=== PATIENT | male | born 1955 | race Caucasian/White ===

== ENCOUNTER 2017-11-19 05:48 | Day surgery (SDC) | payer MEDICARE, SELFPAY ==
[2017-11-19] VITALS (14 sets, daily range): BP systolic 54–121; BP diastolic 46–88; PULSE 63–80; RESP 16–18; TEMP 36.2–36.3; O2SAT 91–98; BMI 17.6
--- NOTE | 2017-11-19 | COLBX_PTH ---
PATIENT: TIA JAIMES LOC: EN U#:[id number] AGE/SX: 62/M ROOM: RE11/19/[address]: Dr. Tia Tsai MD : 1955 BED: DIS: 11/19/2017 SPEC #: [id number] RECD: 11/19/17 09:35 STATUS: ADRIANNA MALIKA #: [id number] GER: 11/19/17 00:[address]: Tia Tsai DEPT: SURGICAL PATHOLOGY RECD BY: Romluo Sharma ENTERED: 11/19/17 11:04 ERNESTO TYPE: COLON BX EKATERINA DR: Monse Fernandez, INSTRUCTOR DECORATING-C Tissues: Transverse colon Procedures: Surgery Specimen Level IV HEADER OPERATION: Colonoscopy PRE-OP DIAGNOSIS: History colon cancer TISSUE SUBMITTED: Mid transverse polyp MICROSCOPIC DIAGNOSIS Transverse colon polyp, biopsy: Tubular adenoma. SJ:ernesto 11/20/17 MICROSCOPIC DESCRIPTION Slides are reviewed. GROSS DESCRIPTION Received in fixative is one container labeled with the patient's name and designated mid transverse polyp. The specimen consists of one polyp of pink and lewis tissue measuring 0.5 x 0.5 x 0.4. The specimen is totally submitted in one cassette. DEANNE:ernesto 11/18/17 TC: 1 CPT: 04481
--- NOTE | 2017-11-19 06:19 | HP.PCM_ITS ---
Problem List (1) History of colon cancer Status: Acute History of Present Illness Date of Admission: 11/19/17 The patient is a 62 year old M who on November 14, 2016 had a right colectomy for severe blood loss anemia secondary to colon cancer. He still has a indwelling port. 1- Stage IIIb (T3, and 1B, M0 ) adenocarcinoma of the right colon status post laparoscopic right hemicolectomy status post right hemicolectomy November 14, 2016 followed by adjuvant [id number] 12/2016-06/2017 (12 Cycles). He has no specific complaints. He currently follows with and he is being referred today for colonoscopy. He presents via our open access program. He has no specific complaints currently. He is a long-term cigarette smoker and he continues to smoke Past Medical History Past Medical History (Chronic Problems): Chronic Problems (Last Reviewed 10/22/17 @ 14:11 by Bri Agustin) GERD (gastroesophageal reflux disease) (Chronic) H/O ventricular tachycardia (Chronic) COPD (chronic obstructive pulmonary disease) (Chronic) Paroxysmal a-fib (Chronic) PAD (peripheral artery disease) (Chronic) Non-ischemic cardiomyopathy (Chronic) Regional lymph node metastasis present (Chronic) Iron (Fe) deficiency anemia (Chronic) Cancer of right colon (Chronic) BPH (benign prostatic hyperplasia) (Chronic) Medical History: Medical History (Last Reviewed 10/22/17 @ 14:11 by Bri Agustin) Afib (Acute) I48.91 COPD (chronic obstructive pulmonary disease) (Acute) J44.[address] (Acute) Z95.828 Abnormal colonoscopy R93.3 RIGHT KIDNEY PROCEDURE W/ TUBE PLACEMET Allergies No Known Allergies Allergy (Verified 11/14/17 08:40) Home Medications: Ambulatory Orders Medication Instructions Recorded Albuterol IH (ProAir) [Proair Hfa] 1 - 2 puff INHALATION Q4H PRN PRN 11/25/15 Apixaban [Eliquis] 5 mg PO BID 11/25/15 Atorvastatin Calcium [Lipitor] 40 mg PO QHS 11/25/15 Pantoprazole Sodium [Protonix] 40 mg PO DAILY 11/25/15 Sotalol HCl [Betapace AF (Beta 80 mg PO BID 11/25/15 Damion)] Budesonide/Formoterol 160/4.5 2 puff INHALATION BID 06/11/17 [Symbicort 160/4.5 Mcg Inhaler (SP)] Tiotropium [place] [Spiriva 18 MCG] 1 puff INHALATION DAILY 11/14/17 Surgical History: Surgical History (Last Reviewed 10/22/17 @ 14:11 by Bri Agustin) H/O colectomy Z98.890, Z90.49 Surgical History: - - Right renal surgery Smoking Status: Light Smoker (<10/day) - *Family History Paternal Family History: Family History (Last Reviewed 10/22/17 @ 14:11 by Bri Agustin) Father Stomach cancer Mother Ovarian cancer Sister Colon cancer History Items: No pertinent history Review of Systems Constitutional: Denies: Weight Change Eyes: Denies: Blurred vision HEENT: Denies: Difficulty Swallowing Cardiovascular: Denies: Chest Pain Respiratory: Reports: Cough Gastrointestinal: Denies: Abdominal Pain Musculoskeletal: Denies: Leg Pain Skin: Reports: Dryness Neurological: Denies: Balance problems Psychiatric: Denies: Anxiety VTE Information - Inpt Only VTE Present on Admission: No Patient Problems: Active and Suspected Problems (Last Reviewed 10/22/17 @ 14:11 by Bri Agustin) History of colon cancer (Acute) Blepharitis (Acute) Afib (Acute) COPD (chronic obstructive pulmonary disease) (Acute) Port catheter in place (Acute) - Physical Exam General: Alert, Oriented x3, Cooperative, No apparent distress HEENT: Atraumatic Oral: Moist Mucosa Neck: Supple, No JVD, Negative Carotid Bruits Lungs: Clear to auscultation Cardiovascular: Regular rate Abdomen: Bowel Sounds Present, Soft, Non Tender Extremities: Clubbing Skin: No rashes Musculoskeletal: No Tenderness to Palpation of Joints or Extremities Lymphatic: No Cervical, Supraclavicular, or Inguinal Adenopathy Neurological: Cranial nerves II-XII grossly intact Psych/Mental Status: Normal Affect Assessment/Plan All Active Problems (Last Reviewed 10/22/17 @ 14:11 by Bri Agustin) History of colon cancer (Acute) Obstructed, uropathy (Acute) Acute pyelonephritis (Acute) Blepharitis (Acute) Chemotherapy-induced thrombocytopenia (Resolved) Drug induced neutropenia (Resolved) Afib (Acute) COPD (chronic obstructive pulmonary disease) (Acute) Port catheter in place (Acute) Patient is one-year status post right colectomy for metastatic colon cancer. Recommend a colonoscopy with possible biopsy or polypectomy is indicated. His previous colonoscopy was approximately 1 year ago as well. He has had an opportunity to ask and have questions answered. We will proceed as noted. Rito Tsai M.D., F.A.C.S.
--- NOTE | 2017-11-19 07:18 | PCM.OPRPT ---
Problem List (1) History of colon cancer Status: Acute Report of Operation Date of Procedure: 11/19/17 Pre-Operative Diagnosis: Previous history of colon cancer with metastatic disease to lymph nodes one year ago Post-Operative Diagnosis: Patent ileocolonic anastomosis. Sessile 1.1 cm polyp of the mid transverse colon. Scattered pancolonic diverticulosis. internal hemorrhoids Surgery/Procedure Performed:: Colonoscopy with hot snare polypectomy Description of Surgical Findings:: Timeout and informed consent was obtained. 62-year-old gentleman was taken to the endoscopy suite. He was placed in the left lateral decubitus position. He received 100 g Demerol and 3 mg of Versed as intravenous sedation. Digital rectal exam demonstrated 2+ internal hemorrhoids. The prostate was 3+ smooth enlarged. Possible colonoscope was inserted and advanced through a tortuous sigmoid colon. Scope was then readily advanced to the transverse colon with some manipulation advanced to the ileocolonic anastomosis in the proximal transverse colon area. This was a stapled anastomosis that appeared to be widely patent. The scope was then carefully withdrawn and in the mid transverse colon there was a 1.1 cm diameter sessile polyp. Photograph was obtained. There lens setting was used to resect and retrieved. Because of the patient's medical comorbidities including anticoagulation for atrial fibrillation I placed a hemostatic clip. That seemed to be well positioned. The scope was further withdrawn throughout the colon. Scattered diverticulosis identified. No additional mass lesions. The scope was retroflexed within the rectum anorectal verge inspected hemorrhoidal changes noted. Excess fluid and air was aspirated. The procedure was completed with the patient tolerating it well. Impression Patent ileocolonic anastomosis Sessile polyp in the mid transverse colon successfully resected with hemostatic clip placed Pancolonic diverticulosis Internal hemorrhoids Smooth prostate enlargement The patient will be notified of pathology results as they become available. He has a indwelling port and he may arrange to have this removed in my office setting. Previous colonoscopy was approximately 1 year ago. Because of the personal history of metastatic colon cancer and ongoing finding of polyps recommend follow-up colonoscopy at 1 year. CC: Monse Orellana and Dr Deleon Medications were given at 0700. Scope was inserted 0703. The ileotransverse colon anastomosis was arrived at 0707.58. The procedure was completed at 0716. Rito Tsai M.D., F.A.C.S. Type of Anesthesia:: IV Sedation
== END 2017-11-19 08:51 | disposition home or self-care (01) ==
LOC: EN 05:48 → AC 05:49
PROVIDERS: Family Provider Nurse Practitioner; PCP Nurse Practitioner; Visit Provider Surgery
PROC: 0DJD8ZZ Inspection of Lower Intestinal Tract, Via Natural or Artificial Opening Endoscopic (ICD-10-PCS; CPT 45378; principal; 2017-11-19 06:55)
DX: Z12.11 Encounter for screening for malignant neoplasm of colon (principal); D12.3 Benign neoplasm of transverse colon; K57.30 Diverticulosis of large intestine without perforation or abscess without bleeding; K64.8 Other hemorrhoids; D50.9 Iron deficiency anemia, unspecified; N10 Acute pyelonephritis; I48.0 Paroxysmal atrial fibrillation; J44.9 Chronic obstructive pulmonary disease, unspecified; N40.1 Benign prostatic hyperplasia with lower urinary tract symptoms; N13.8 Other obstructive and reflux uropathy; I42.8 Other cardiomyopathies; I73.9 Peripheral vascular disease, unspecified; K21.9 Gastro-esophageal reflux disease without esophagitis; F17.210 Nicotine dependence, cigarettes, uncomplicated; Z79.01 Long term (current) use of anticoagulants; Z79.899 Other long term (current) drug therapy; Z85.038 Personal history of other malignant neoplasm of large intestine; Z90.49 Acquired absence of other specified parts of digestive tract
CPT/HCPCS: 45385; 88305; 99152; 99153; J7120; A4216

== ENCOUNTER → 2018-01-03 16:03 | Outpatient (CLI) | payer MEDICARE, SELFPAY ==
--- NOTE | 2018-01-03 16:10 | CT_ITS ---
STUDY: LOW DOSE CT LUNG CANCER SCREENING REASON FOR EXAM: Male, 62 years old. Smoker for 47 years. Tobacco use. History of colon cancer. RADIATION DOSAGE (If Supplied By Facility): CTDIvol = ( 2.01 ) mGy, DLP = ( 75.50 ) mGycm TECHNIQUE: No contrast was administered. Low dose technique was utilized (average mAS-38 and kVp 120). 1.25 mm axial source images with a slice interval of 1.25-mm were reconstructed in lung windows. Nodule measured using lung windows on PACS and/or independent workstation with automated measurement of minimum and maximum diameter. Nodule measurement reported as average diameter rounded to the nearest whole number. Growth is defined as an increase ins size of greater than 1.5 mm. COMPARISON: None. NODULES: Nodule: There are innumerable 1 to 10 mm subsolid/groundglass nodules/opacities demonstrated scattered in both lungs, worrisome of malignancy until proven otherwise. Moderately severe emphysema: Subpleural emphysematous blebs, diffuse parenchymal cystic lucencies and hyperinflation of the lungs. There is biapical significant pleural parenchymal thickening and fibrotic scarring. Endobronchial lesion: None. Aorta: Mild atherosclerotic calcification of the aortic arch. Coronary arteries: Unremarkable. Heart: Normal size. Pulmonary artery: Within normal limits. Mediastinal nodes: A few small reactive mediastinal lymph nodes. Other chest and abdominal findings: A right IJ Port-A-Cath is seen with the tip in mid SVC. Increased thoracic kyphosis. CT/Low Dose CT Lung Screening IMPRESSION: Innumerable groundglass opacity nodules/sub-solid nodules are seen in both lungs, suspicious of malignancy/adenocarcinoma in situ until proven otherwise. Consider follow-up with short-term CT exam in 3 months. PET/CT has limited value in the diagnostic workup of groundglass opacity nodules. Lung-RADS category 4A - Screening at 3 months with LDCT. Persisting ground glass opacity nodules larger than 5 mm should be followed for at least 4 years. IMPORTANT NOTES FOR USE: ACR Lung-RADS Version 1.0 Assessment Categories Release Date: September 21, 2013 Category: Coded 0-4 bases on nodule(s) with highest degree of suspicion. Negative screen is defined as categories 1 and 2; a positive screen is defined as categories 3 and 4. Category 3 and 4A nodules that are unchanged on interval CT should be coded as category 2, and individuals returned to screening in 12 months. Category 4X: Category 3 or 4 nodules with additional imaging findings that increase the suspicion of lung cancer, such as spiculation, GGN that doubles in size in 1 year, enlarged lymph notes, etc. Category Modifiers: S (significant finding unrelated to lung cancer) and C (prior history of treated lung cancer) may be added to the 0-4 Lung-RADS Electronically Signed: Brayden Morris MD at 7:53 EDT Tel , Service support ,
== END ==
PROVIDERS: Family Provider Student in an Organized Health Care Education/Training Program; PCP Student in an Organized Health Care Education/Training Program; Visit Provider Internal Medicine Hematology & Oncology
DX: C18.2 Malignant neoplasm of ascending colon (principal); C77.9 Secondary and unspecified malignant neoplasm of lymph node, unspecified; Z87.891 Personal history of nicotine dependence
CPT/HCPCS: G0297

== ENCOUNTER → 2018-01-24 13:11 | Outpatient (CLI) | payer MEDICARE, SELFPAY ==
--- NOTE | 2018-01-27 17:44 | LEAS ---
Arterial Study - Arterial Study Arterial Study: This is a 62-year-old male with a history of chronic obstructive pulmonary disease, atrial fibrillation, colon cancer, peripheral arterial occlusive disease, and smoking. He is brought to the noninvasive vascular laboratory at this time for the purpose of bilateral noninvasive lower extremity arterial assessment. Doppler signal assessment was used to evaluate the pulses at ankle level bilaterally. The posterior tibial and dorsalis pedis pulses were biphasic bilaterally. Segmental limb pressures were obtained bilaterally. The right low thigh pressure was measured at 95 mmHg. The right calf pressure was measured at 94 mmHg. The right ankle pressure, as determined by posterior tibial pulse, was measured at 81 mmHg. The right ankle pressure, as determined by dorsalis pedis pulse, was measured at 94 mmHg. The right digital pressure was measured at 57 mmHg. The left low thigh pressure was measured at 88 mmHg. The left calf pressure was measured at 110 mmHg. The left ankle pressure, as determined by posterior tibial pulse, was measured at 84 mmHg. The left ankle pressure, as determined by dorsalis pedis pulse, was measured at 86 mmHg. The left digital pressure was measured at 78 mmHg. Pulse-volume recordings were obtained bilaterally and segmentally. Waveform amplitudes appeared to be diminished at all levels bilaterally. Resting ankle-brachial indices were calculated bilaterally. The resting right ankle-brachial index was calculated to be 0.66. The resting left ankle-brachial index was calculated to be 0.61. Digital-brachial indices were calculated bilaterally. The right digital-brachial index was calculated be 0.40. The left digital-brachial index was calculated to be 0.55. Impression: Based upon the findings of this resting noninvasive lower extremity arterial study, there is evidence of moderate arterial occlusive disease in the lower extremities bilaterally. Biphasic waveforms were noted at ankle level bilaterally. Resting ankle-brachial indices are moderately diminished bilaterally. Digital-brachial indices are also moderately diminished bilaterally. In summary, there is evidence of moderate arterial occlusive disease in the lower extremities bilaterally. A large component of the arterial occlusive process appears to be related to aorto-iliac or ilio-femoral occlusive disease. Clinical correlation is advised.
== END ==
PROVIDERS: Family Provider Student in an Organized Health Care Education/Training Program; PCP Student in an Organized Health Care Education/Training Program; Visit Provider Student in an Organized Health Care Education/Training Program
DX: I73.9 Peripheral vascular disease, unspecified (principal)
CPT/HCPCS: 93923

== ENCOUNTER → 2018-04-07 13:57 | Outpatient (CLI) | payer MEDICARE, SELFPAY ==
--- NOTE | 2018-04-07 14:00 | CT_ITS ---
STUDY: CT CHEST WITH CONTRAST REASON FOR EXAM: Male, 62 years old. Lung nodule. RADIATION DOSAGE (If Supplied By Facility): CTDIvol = ( 9.71 ) mGy, DLP = ( 226.91 ) mGycm TECHNIQUE: Transaxial imaging was performed following intravenous administration of 100 ml of Isovue 370 contrast material. Multiplanar coronal and sagittal images were reformatted. Individualized dose optimization techniques were used for this CT. COMPARISON: Comparison is made with prior examination dated January 03, 2018. FINDINGS: The previously seen focal areas of alveolar disease have cleared. Hyperinflation. Diffuse emphysematous changes worse in the upper lobes. Stable bullous changes in the upper lobes worse in the right lung apex. Stable appearance of the stellate soft tissue density in the posterior aspect of the left apex most likely representing scarring. Stable appearance of the irregular soft tissue density in the left apex suggestive of scarring. No other pulmonary nodule or mass lesion is seen. There is no demonstrated pleural abnormality. Normal heart and pericardium. Normal mediastinum. Normal hilar regions. Normal enhanced pulmonary arteries. Normal aorta arch and descending thoracic aorta. There are mild degenerative changes of the thoracic spine. Multiple healed right rib fractures. There is no demonstrated abnormality of the visualized upper abdomen. CT/Chest WITH Contrast IMPRESSION: Stable findings suggestive of scarring at both lung apices. Emphysematous changes. Stable 3.7 mm noncalcified nodule in the peripheral aspect of the left lower lobe. Electronically Signed: Jorge Cueto MD at 15:39 EST Tel [phone], Service support ,
== END ==
PROVIDERS: Family Provider Student in an Organized Health Care Education/Training Program; PCP Student in an Organized Health Care Education/Training Program; Referring Provider Internal Medicine Hematology & Oncology; Visit Provider Internal Medicine Hematology & Oncology
DX: R91.8 Other nonspecific abnormal finding of lung field (principal); C18.2 Malignant neoplasm of ascending colon; D50.9 Iron deficiency anemia, unspecified
CPT/HCPCS: 36415; 36591; 71260; 80053; 82378; 85025; Q9967; A4216

== ENCOUNTER 2018-06-23 15:43 | Emergency (ER) | payer MEDICARE, SELFPAY ==
[2018-04-16 14:48] VITALS: BMI 18.7
[2018-06-23 15:44] VITALS: BP 128/72; PULSE 91; RESP 18; TEMP 36.4; O2SAT 95; BMI 19.6
--- NOTE | 2018-06-23 16:04 | ED.VISSUMM ---
- ER Visit Summary Date of Service: 06/23/18 Chief Complaint: Decreased urination History of Present Illness: The patient is a 62 M who has decreased urination. He states he has only been dribbling for the past couple of days. He denies dysuria or hematuria. He has had a history of a kidney surgery by Dr. Ballesteros. He states because it was clogged. Denies any history of prostate issues in the past. He did state he was placed on doxycycline, acyclovir, prednisone and oxycodone for rash on his buttock a few days ago. Physical Examination: Vital signs reviewed. HEENT exam unremarkable. Heart is regular rate and rhythm without murmurs. Lungs are clear to auscultation. Abdomen is soft with mild suprapubic tenderness. Extremities reveal no edema. Skin exam does show a maculopapular rash on the buttock. It does appear to cross the midline slightly. Neurologic exam normal. Test Results: Urinalysis reveals no evidence of infection or significant amount of blood. Emergency Department Course and Treatment: The patient does have acute urinary retention. Yo catheter was placed and he had 1300 cc of urine returned. His urinary retention could be due to the medications he was placed on a few days ago. His rash does not appear to be shingles. I however told him to continue all medications except for the doxycycline. I will place him on hydrocortisone cream and Flomax. He will follow-up with his PCP and with urology. He will go home with a leg bag. Treatment Plan: [] Disposition: Discharge Impression: Acute urinary retention, dermatitis This note was generated with [employer] dictation software. It may contain incorrect words, spelling, and punctuation that were not noted in review of the chart prior to signing ED Disposition - Plan for ED Patient: Chief Complaint: Complaint Referrals: Merle Arthur MD [Primary Care Provider] -
[2018-06-23 16:46] LABS: Bacteria 0 SEEN /hpf (None Seen); Mucous, Urine 0 SEEN /hpf (<or=2+); Squamous Epithelial Cells - UA 0 SEEN /hpf (0-5); White Blood Cells 0 SEEN /hpf (0-5)
[2018-06-23 17:02] LABS: Color, Urine Yellow (Yellow); Glucose, Dipstick Normal (Normal); Ketone-Dipstick Negative (Negative); Leukocyte Esterase-Dipstick Negative /ul (Negative); Nitrite-Dipstick Negative (Negative); Occult Blood-Urine 50 /ul (Negative); Protein-Dipstick 15 mg/dl (Negative); Urine Bilirubin Dipstick Negative (Negative); Urine Clarity Clear (Clear); Urine Urobilinogen Normal (Normal); Urine pH 6.5 (5.0 - 8.0)
[2018-06-23 17:27] LABS: Red Blood Cells-Urine 0-5 SEEN /hpf (0-5)
--- NOTE | 2018-06-23 17:42 | ED.DEP ---
ED Disposition - Plan for ED Patient: Disposition: Home or Assisted Living Chief Complaint: Complaint Instructions: ED Retention Urinary Male Prescriptions: Tamsulosin HCl [Flomax] 0.4 mg PO DAILY #7 cap Hydrocortisone 1% Crm [Hytone] 1 applic TOPICAL BID #1 tube Referrals: Merle Arthur MD [Primary Care Provider] -
[2018-06-23 17:59] VITALS: BP 117/79; PULSE 88; RESP 18; O2SAT 94
--- NOTE | 2018-06-23 18:01 | ED.RN ---
pt had output of 850 cc of urine upon placement of leg bag
== END 2018-06-23 18:01 | disposition home or self-care (01) ==
PROVIDERS: Emergency Provider Emergency Medicine; Family Provider Student in an Organized Health Care Education/Training Program; PCP Student in an Organized Health Care Education/Training Program
DX: R33.9 Retention of urine, unspecified (principal); L30.9 Dermatitis, unspecified; I48.91 Unspecified atrial fibrillation; J44.9 Chronic obstructive pulmonary disease, unspecified; Z72.0 Tobacco use; Z79.01 Long term (current) use of anticoagulants; Z79.899 Other long term (current) drug therapy; Z85.038 Personal history of other malignant neoplasm of large intestine
CPT/HCPCS: 51702; 81001; 99283

== ENCOUNTER 2018-06-27 14:43 | Emergency (ER) | payer MEDICARE, SELFPAY ==
[2018-06-27 14:44] VITALS: BP 131/87; PULSE 73; RESP 16; TEMP 36.9; O2SAT 98; BMI 19.5
--- NOTE | 2018-06-27 15:06 | ED.VISSUMM ---
- ER Visit Summary Date of Service: 06/27/18 Chief Complaint: Yo catheter removal History of Present Illness: The patient is a 62 M with a Yo catheter placed on 06/24/2018 for retention presents with request to have it removed. He was unable to see his urologist since he is out of town. He has no prior symptoms of this, but knows urology from a kidney surgery a few years ago. He has no symptoms of fever chills or any other symptoms. Physical Examination: He has a soft and nontender abdomen his external genitalia is normal with a Yo in place. Emergency Department Course and Treatment: Catheter was removed, patient was monitored and is able to void. He is to follow-up with his urologist, I will place him on Flomax for home. Disposition: Discharge stable condition Impression: Urinary retention improved This note was generated with [employer] dictation software. It may contain incorrect words, spelling, and punctuation that were not noted in review of the chart prior to signing ED Disposition - Plan for ED Patient: Disposition: Home or Assisted Living Diagnosis: BPH (benign prostatic hyperplasia) Prescriptions: Tamsulosin HCl [Flomax] 0.4 mg PO DAILY #30 cap.er.24h Referrals: Javid Ballesteros MD [STAFF PHYSICIAN] - 2 Days
--- NOTE | 2018-06-27 15:09 | ED.DCSUM_ITS ---
- ER Visit Summary Date of Service: 06/27/18 Chief Complaint: Yo catheter removal History of Present Illness: The patient is a 62 M with a Yo catheter placed on 06/24/2018 for retention presents with request to have it removed. He was unable to see his urologist since he is out of town. He has no prior symptoms of this, but knows urology from a kidney surgery a few years ago. He has no symptoms of fever chills or any other symptoms. Physical Examination: He has a soft and nontender abdomen his external genitalia is normal with a Yo in place. Emergency Department Course and Treatment: Catheter was removed, patient was monitored and is able to void. He is to follow-up with his urologist, I will place him on Flomax for home. Disposition: Discharge stable condition Impression: Urinary retention improved This note was generated with [employer] dictation software. It may contain incorrect words, spelling, and punctuation that were not noted in review of the chart prior to signing ED Disposition - Plan for ED Patient: Disposition: Home or Assisted Living Diagnosis: BPH (benign prostatic hyperplasia) Prescriptions: Tamsulosin HCl [Flomax] 0.4 mg PO DAILY #30 cap.er.24h Referrals: Javid Ballesteros MD [STAFF PHYSICIAN] - 2 Days
--- NOTE | 2018-06-27 16:23 | ED.RN ---
PT ATTEMPTED TO VOID BUT UNABLE AT THIS TIME.
--- NOTE | 2018-06-27 16:45 | ED.RN ---
PT VOIDED 60ML CLEAR YELLOW URINE. PHYSICIAN NOTIFIED AND TALKED WITH PT.
--- NOTE | 2018-06-27 16:46 | ED.RN ---
PT WAS VERY IMPATIENT TO LEAVE AND DID NOT WANT VS TAKEN. PT STATED HE WAS FINE. ONLY PROBLEM WAS HIM PISSING OR NOT.
== END 2018-06-27 16:47 | disposition home or self-care (01) ==
PROVIDERS: Emergency Provider Emergency Medicine; Family Provider Student in an Organized Health Care Education/Training Program; PCP Student in an Organized Health Care Education/Training Program
DX: Z46.6 Encounter for fitting and adjustment of urinary device (principal); N40.1 Benign prostatic hyperplasia with lower urinary tract symptoms; R33.8 Other retention of urine; I48.91 Unspecified atrial fibrillation; J44.9 Chronic obstructive pulmonary disease, unspecified; Z72.0 Tobacco use; Z79.01 Long term (current) use of anticoagulants; Z85.038 Personal history of other malignant neoplasm of large intestine
CPT/HCPCS: 99282

== ENCOUNTER → 2018-07-22 16:05 | Outpatient (CLI) | payer MEDICARE, SELFPAY ==
[2018-07-17 14:35] VITALS: BMI 18.9
[2018-07-22 18:14] LABS: Anion Gap 3 (5-15); BUN 7 mg/dL (7-18); Calcium,Total 8.6 mg/dL (8.5-10.1); Chloride 102 mmol/L (98-107); EST Glomerular Filtration Rate 121 mL/min (>60); Est Glom Filt Rate - Afr Amer 146 mL/min (>60); Glucose 78 mg/dL (74-106); Potassium 4.3 mmol/L (3.5-5.1); Sodium Level 136 mmol/L (136-145)
== END ==
PROVIDERS: Family Provider Nurse Practitioner; PCP Nurse Practitioner; Referring Provider Urology; Visit Provider Urology
DX: N40.0 Benign prostatic hyperplasia without lower urinary tract symptoms (principal); Z12.5 Encounter for screening for malignant neoplasm of prostate
CPT/HCPCS: 36415; 80048

== ENCOUNTER → 2018-10-13 13:48 | Outpatient (CLI) | payer MEDICARE, MEDICAID, SELFPAY ==
[2018-07-17 14:35] VITALS: BMI 18.9
--- NOTE | 2018-10-13 14:12 | CT_ITS ---
We are attempting to reach an attending provider to discuss findings. An addendum with communication details will be sent when the communication is complete. STUDY: CT CHEST WITH CONTRAST REASON FOR EXAM: Male, 63 years old. Lung nodule RADIATION DOSAGE (If Supplied By Facility): CTDIvol = ( 13.32 ) mGy, DLP = ( 290.47 ) mGycm TECHNIQUE: Transaxial imaging was performed following intravenous administration of 100 IV Isovue 300. Multiplanar coronal and sagittal images were reformatted. Individualized dose optimization techniques were used for this CT. COMPARISON: January 03, 2018 CT lung screening, April 07, 2018 CT scan with contrast, CT scan abdomen and pelvis November 05, 2016 FINDINGS: There is emphysematous change within the lungs with a focus of scarring and slight nodularity within the right apex which is stable since the prior study. The focal nodular measures 6.7 mm on today's study. Stable when compared to prior study when it measured approximately 7 mm. There are areas of scarring in the left apex stable since prior study. There is a stable focus of nodular thickening in the left apex less apparent than prior study. As a stable 3.4 mm nodule in the left lower lobe. There are no visualized new focal areas of consolidation pleural effusion or pulmonary edema. There is no demonstrated pleural abnormality. Normal heart and pericardium. Normal mediastinum. Normal hilar regions. Normal enhanced pulmonary arteries. There is partial atherosclerotic calcification of the aortic arch with tortuosity and elongation of the aortic arch and descending thoracic aorta. The lumen of the left subclavian is thrombosed as seen on image #105 of the coronal views over a segment at 2.5 cm approximately 1.0 cm from its takeoff. There is contrast within the distal left subclavian which could be associated with subclavian steal. There are mild multi-level degenerative changes of the thoracic spine. The liver is fatty infiltrated. There is a abnormal appearance of the right kidney with right renal cortical thinning right renal stranding and a distended appearance of the right renal pelvis. There is a cystic distended appearance of the calyces. On the left side there is a 7.5 mm left renal cyst. There is a punctate stone right kidney. CT/Chest WITH Contrast IMPRESSION: Stable bilateral apical scarring stable emphysematous change consistent with chronic obstructive pulmonary disease. There is a persistent nodule measuring 3.4 mm within the left lower lobe. This is similar to prior studies. A continued 6 month follow-up is recommended. 1 cm distal to the takeoff, the subclavian artery is thrombosed, occluded over a segment of 2.5 cm. The visualized distal left subclavian artery is reconstituted approximately at the level of the takeoff of the vertebral artery which is contrasted. Findings are highly suspicious for subclavian steal pattern. Recommend further evaluation with carotid/vertebral artery ultrasound evaluate direction of flow in the vertebral arteries. Partially visualized persistent chronic right-sided severe hydronephrosis. Punctate stone right kidney. Benign-appearing left renal cyst Hepatic steatosis. Electronically Signed: Lor Marrero MD at 15:51 EDT Tel , Service support ,
[2018-10-13 14:40] LABS: CREATININE FINGERSTICK 1.1 mg/dL (0.70-1.30)
== END ==
PROVIDERS: Family Provider Nurse Practitioner; PCP Nurse Practitioner; Referring Provider Internal Medicine Hematology & Oncology; Visit Provider Internal Medicine Hematology & Oncology
DX: C18.2 Malignant neoplasm of ascending colon (principal); R91.8 Other nonspecific abnormal finding of lung field
CPT/HCPCS: 71260; Q9967

== ENCOUNTER 2018-11-25 06:06 | Day surgery (SDC) | payer MEDICARE, SELFPAY ==
--- NOTE | 2018-10-30 03:58 | HP_ITS ---
Intake Vital Signs 10/30/18 Height 5 ft 8 in 10/30/18 Weight: 135 lb 5 oz 10/30/18 Body Mass Index (BMI) 20.5 10/30/18 Blood Pressure 156/92 H 10/30/18 Blood Pressure Location Rt brachial 10/30/18 Blood Pressure Position Sitting 10/30/18 Respiratory Rate 20 H 10/30/18 Pulse Rate 66 10/30/18 Pulse Ox 95 Intake Visit Reasons: PAD Chief Complaint: PAD [employer] Specialist Required: No Is patient in pain?: No Allergies No Known Allergies Allergy (Verified 10/30/18 15:17) Medications Albuterol IH (ProAir) [Proair Hfa] 1 - 2 puff INHALATION Q4H PRN PRN 11/25/15 [History Confirmed 10/30/18] Apixaban [Eliquis] 5 mg PO BID 11/25/15 [History Confirmed 10/30/18] Atorvastatin Calcium [Lipitor] 40 mg PO QHS 11/25/15 [History Confirmed 10/30/18] Pantoprazole Sodium [Protonix] 40 mg PO DAILY 11/25/15 [History Confirmed 10/30/18] Sotalol HCl [Betapace AF (Beta Damion)] 80 mg PO BID 11/25/15 [History Confirmed 10/30/18] Budesonide/Formoterol 160/4.5 [Symbicort 160/4.5 Mcg Inhaler (SP)] 2 puff INHALATION BID 06/11/17 [History Confirmed 10/30/18] Tiotropium [place] [Spiriva 18 MCG] 1 puff INHALATION DAILY 11/14/17 [History Confirmed 10/30/18] Tamsulosin HCl [Flomax] 0.4 mg PO DAILY #7 cap 06/23/18 [Rx Confirmed 10/30/18] [facility] Medical History Personal history of colonic polyps (Acute) BPH (benign prostatic hyperplasia) (Chronic) Non-ischemic cardiomyopathy (Chronic) PAD (peripheral artery disease) (Chronic) Paroxysmal a-fib (Chronic) COPD (chronic obstructive pulmonary disease) (Chronic) H/O ventricular tachycardia (Chronic) GERD (gastroesophageal reflux disease) (Chronic) Iron (Fe) deficiency anemia (Resolved) Afib (Acute) COPD (chronic obstructive pulmonary disease) (Chronic) Port catheter in place (Acute) Abnormal colonoscopy (Acute) Personal history of colon cancer (Acute) RIGHT KIDNEY PROCEDURE W/ TUBE PLACEMET (Acute) Surgical History H/O colectomy (Acute) History of cataract extraction (Acute) History of partial colectomy (Acute) Family History Father Stomach cancer Mother Ovarian cancer Sister Colon cancer Social History Smoking Status: Light Smoker (<10/day) HPI HPI HPI: TIA JAIMES, is a 63 M who presents to the office today for HPI HPI Surgical H&P: Yes HPI: TIA JAIMES, is a 63 M who presents to the office today for 2 separate issues. He is referred by Dr Deleon for surgical consultation regarding peripheral vascular occlusive disease. It is of note however that on November 14, 2016 I performed a lap scopic right hemicolectomy for him for ascending colon cancer with severe blood loss anemia. Surgical margins were clear. The tumor measured 2 x 2 x 0.5 cm. There was a tumor deposit within the mesentery measuring 3 cm. There was extensive perineural invasion. 2 out of 10 lymph nodes were involved. Was not clear whether this 3 cm tumor deposit was an overwhelming lymph node. His most recent colonoscopy was November 19, 2017. Again of note was that there was a patent ileocolonic anastomosis but a sessile 1.1 cm polyp of the mid transverse colon. Hot snare polypectomy was performed. The patient was felt to be at increased risk and I recommended at that time that we repeat a colonoscopic evaluation at 1 year. The patient also is referred for peripheral vascular occlusive disease. The patient was quite symptomatic with severe bilateral leg pain as well as claudication prior to his colectomy. This is because he was severely anemic. His most recent arterial study was January 27, 2018. The right SHILPA was 0.66 and the left 0.61. Right TBI was 0.4 in the left TBI 0.55. I have office records dating back to October 01, 2016. I make comment that a CTA of the abdomen had been performed at the [facility]. They made the assumption that there was poor visualization of the distal abdominal aorta and proximal common iliacs. I have personally reviewed the images and I believe that the patient has distal aortic occlusion with likely extension into bilateral common iliacs. I did verbally discuss this in detail with the patient and I recommended tertiary referral. We try to assist him with tertiary referral. It is evident today and he admits that he did not pursue that recommendation or that referral. Moreover he states that he remains completely uninterested in pursuing any investigation or treatment regarding his peripheral vascular occlusive disease ROS General General: Yes weight change, appetite and colon cancer; no fatigue, breast cancer or weakness HEENT HEENT: No difficulty swallowing, eye injury, eye surgery, swollen glands or hoarseness Endo Endocrine: No thyroid disease, diabetes mellitus, thyroid cancer, Hair loss, heat intolerance or cold intolerance Cardio Cardiovascular: Yes atrial fibrillation; no murmur, pacemaker, heart disease, high blood pressure, heart attack, heart stent, palpitations, shortness of breat with exertion or chest pain Resp Respiratory: Yes shortness of breath, No sleep apnea, No cough, Yes COPD, No asthma, No emphysema, No wheezing Gastro Gastrointestinal: No abdominal pain, No nausea or vomiting, No diarrhea, No constipation, No blood in stool, No acid reflux, No hemorrhoids, No ulcers, No gallbladder problem, No black,tarry stools Wang Hematologic: Yes blood thinners, No blood disorders, No bleeding, No anemia, No blood clots Neuro Neurologic: No weakness Exam Const General: ill appearing Nutritional Appearance: average body habitus Orientation: alert, oriented x3 HENMT Head: normal to inspection Chest Other: Increased AP diameter Resp Effort & Inspection: normal respiratory effort Auscultation: clear to auscultation bilaterally Cardio Heart Sounds: no murmurs Other: Faint, irregular cardiac rhythm Left carotid 1+ right carotid 1+ no distinct bruits bilateral brachials 1+ left radial 1+ right radial 0 bilateral femoral and popliteal and DP and PT pulses are absent GI Palpation: soft, no hepatosplenomegaly Auscultation: normal bowel sounds Other: Very well-healed midline short supraumbilical incision Extrem Other: Dependent rubor and elevation pallor noted. Hypertrophic toenails. Diminished capillary refill. Minutes light touch sensation. Diminished venous return Psych Affect: normal affect Assessment & Plan Problems 1. PAD (peripheral artery disease) I73.9 2. History of colon cancer Z85.038 3. Personal history of colonic polyps Z86.010 Plan 63-year-old gentleman. He has a personal history of ascending colon cancer with mesenteric deposit and lymph node metastasis. In addition on his most recent colonoscopy November 19, 2017 he had a 1.1 cm transverse colon tubular adenoma. I do recommend to him a colonoscopy with possible biopsy or polypectomy as indicated. He is at high risk for recurrence. He has had an opportunity to ask and have questions answered. Regarding the patient's systemic peripheral vascular occlusive disease. As noted in 2017 identified for the patient that he has aortic occlusion and occlusion of bilateral common iliacs. I believe that his disease process mounika Yin is quite complex. I recommended to him at that time tertiary level referral. Because the patient's anemia was resolved blood flow to his feet symptomatically was improved. He claims that he is not limited. He absolutely declines referral for tertiary intervention. With that in mind he is well aware that I cannot palpate pulses. He is aware that he is in the moderately to severe category. He is aware that I definitively recommend tertiary consultation and treatment. I do not anticipate pursuing further noninvasive investigation or treatment locally. I appreciate the ongoing opportunity of helping with his surgical care CC: Dr Arthur and Dr Adrienne Tsai M.D., F.A.C.S. Orders Orders: Colonoscopy Today Z85.038, Z86.010 Coding Level of Care Code Comprehensive,moderate Diagnoses PAD (peripheral artery disease) I73.9 History of colon cancer Z85.038 Personal history of colonic polyps Z86.010 10/30/18 1558 <Electronically signed by Tia coles MD> Date _ Tia Tsai MD I have re-examined the patient. There are no clinical changes since date of exam.
[2018-10-30 15:17] VITALS: BMI 20.5
[2018-11-25] VITALS (11 sets, daily range): BP systolic 92–139; BP diastolic 64–94; PULSE 86–92; RESP 16–18; TEMP 36.2–36.8; O2SAT 91–100; BMI 20.5
--- NOTE | 2018-11-25 | COLBX_PTH ---
PATIENT: TIA JAIMES LOC: EN U#:[id number] AGE/SX: 63/M ROOM: RE11/25/[address]: Dr. Tia Tsai MD : 1955 BED: DIS: 11/25/2018 SPEC #: [id number] RECD: 11/25/18 14:01 STATUS: ADRIANNA MALIKA #: [id number] GER: 11/25/18 00:[address]: Tia Tsai DEPT: SURGICAL PATHOLOGY RECD BY: Giovanny Jimenez ENTERED: 11/25/18 14:02 SP TYPE: COLON BX OT DR: Dr. Merle Arthur MD Tissues: Rectum, NOS Procedures: Surgery Specimen Level IV HEADER OPERATION: Colonoscopy PRE-OP DIAGNOSIS: Transverse colon tubular adenoma; history colon CA TISSUE SUBMITTED: Rectal polyp biopsy MICROSCOPIC DIAGNOSIS Rectal polyp, biopsy: Fragments of colonic mucosa with focal minimal changes suggestive of hyperplastic polyp. SJ:lyndsey 11/26/18 MICROSCOPIC DESCRIPTION Slides are reviewed. GROSS DESCRIPTION Received in fixative is one container labeled with the patient's name and designated rectal polyp biopsy. The specimen consists of multiple irregular fragments of light lewis soft tissue that in aggregate measure 0.8 x 0.3 x 0.1 cm. The specimen is totally submitted in one cassette. / SJ:lyndsey 11/25/18 TC:5 CPT: 11011
--- NOTE | 2018-11-26 10:45 | OP.ENDO_ITS ---
11/26/2018 Merle Arthur Re : Colonoscopy procedure for Rito Allen Isabelr Jerson This procedure was performed on Sunday, November 25, 2018. My impressions and recommendations are as follows: Impressions : - Non-thrombosed external hemorrhoids, non-thrombosed internal hemorrhoids, internal hemorrhoids that prolapse with straining, but require manual replacement into the anal canal (Grade III) and enlarged prostate found on digital rectal exam. - One 4 mm polyp in the rectum, removed with a cold biopsy forceps. Resected and retrieved. - Diverticulosis in the sigmoid colon and in the descending colon. - Patent functional end-to-end ileo-colonic anastomosis. Recommendations : - Discharge patient to home. - Resume previous diet. - Continue present medications. - Repeat colonoscopy in 5 years for surveillance. - Telephone my office for pathology results in 1 week. My findings are described in the full procedure note, which is enclosed. If I can be of further assistance, please feel free to contact me at Doctor phone number(s): Work: . Sincerely, Rito Tsai MD 11/25/2018 7:21:04 AM This report has been signed electronically.
== END 2018-11-25 08:15 | disposition home or self-care (01) ==
LOC: EN 06:06 → AC 06:07
PROVIDERS: Family Provider Student in an Organized Health Care Education/Training Program; PCP Student in an Organized Health Care Education/Training Program; Referring Provider Surgery; Visit Provider Surgery
PROC: 0DJD8ZZ Inspection of Lower Intestinal Tract, Via Natural or Artificial Opening Endoscopic (ICD-10-PCS; CPT 45378; principal; 2018-11-25 06:55)
DX: K62.1 Rectal polyp (principal); K64.2 Third degree hemorrhoids; N40.0 Benign prostatic hyperplasia without lower urinary tract symptoms; K57.30 Diverticulosis of large intestine without perforation or abscess without bleeding; Z85.038 Personal history of other malignant neoplasm of large intestine; Z86.010 Personal history of colon polyps; I73.9 Peripheral vascular disease, unspecified; I48.0 Paroxysmal atrial fibrillation; J44.9 Chronic obstructive pulmonary disease, unspecified; K21.9 Gastro-esophageal reflux disease without esophagitis; D50.9 Iron deficiency anemia, unspecified; F17.200 Nicotine dependence, unspecified, uncomplicated; Z79.02 Long term (current) use of antithrombotics/antiplatelets; Z79.51 Long term (current) use of inhaled steroids; Z79.899 Other long term (current) drug therapy
CPT/HCPCS: 45380; 88305; 99152; 99153; J7120

== ENCOUNTER → 2019-04-09 15:01 | Outpatient (CLI) | payer MEDICARE, SELFPAY ==
[2018-11-25 06:31] VITALS: BMI 20.5
--- NOTE | 2019-04-09 15:19 | CT_ITS ---
STUDY: CT CHEST WITH CONTRAST REASON FOR EXAM: Male, 63 years old. Follow-up lung nodule. RADIATION DOSAGE (If Supplied By Facility): CTDIvol = ( 9.61 ) mGy, DLP = ( 347.16 ) mGycm TECHNIQUE: Transaxial imaging was performed following intravenous administration of IV Isovue 370 75CC. 10/13/2018. Individualized dose optimization techniques were used for this CT. COMPARISON: None. FINDINGS: The lungs are normally expanded with bilateral bullous changes more severe in the lung apices compatible with emphysema. Redemonstrated is left lower lobe subpleural nodule measuring, stable in the interval when major at the same level of axial image. There is scarring involving the right lung apex. There is increased linear density along with a round nodularity at this level measuring approximately 0.8 cm, stable in the interval. there is no demonstrated pleural abnormality. Normal heart and pericardium. Normal mediastinum. Normal hilar regions. Normal enhanced pulmonary arteries. There is atherosclerotic calcification of the aortic arch with tortuosity and elongation of the aortic arch and descending thoracic aorta. There are multi-level degenerative changes of the thoracic spine. Upper abdomen: There is evidence of scarring with several cysts within the right upper renal pole largest averaging approximately 2.6 x 2.5 cm. Remainder of the bilateral kidneys are normal. Bilateral jugular glands are normal. There is pancreatic atrophy. The visualized liver and spleen are normal. CT/Chest WITH Contrast IMPRESSION: Left lower lobe and right apical nodular structures, favoring benign process given stability since 2017 and morphology. No new nodules are identified. No lymphadenopathy. Underlying emphysema. Electronically Signed: Lucía Rios MD at 6:29 EST , Service support ,
[2019-04-09 15:28] LABS: Absolute Lymphocyte Count 1.62 X10^3/uL (0.83-4.51); Absolute Neutrophil Count 4.4 X10^3/uL (2.0-7.7); Basophil# 0.06 X10^3/uL; Basophil% 0.9 % (0-1); Eosinophil# 0.12 X10^3/uL; Eosinophils% 1.8 % (0-5); Hematocrit 48.4 % (40-54); Hemoglobin 15.6 g/dL (13.0-16.5); Lymphocyte # 1.62 X10^3/ul (4.0); Lymphocyte % 24.3 % (19-41); Mean Corp Hgb Conc 32.2 g/dL (32-36); Mean Corpuscular Hgb 31.1 pg (27.0-32.0); Mean Corpuscular Volume 96.4 fL (80-94); Mean Platelet Vol. 9.1 fl (6.2-12.0); Monocyte# 0.39 X10^3/uL; Monocyte% 5.8 % (0-10); NRBC Flagged by Analyzer 0 % (0-5); Neutrophil # 4.44 X10^3/uL (2.7-7.7); Neutrophil % 66.6 % (47-70); Platelet Count 187 K/mm3 (150-450); RBC Distribution Width CV 13.5 % (11.6-14.6); RBC Distribution Width SD 47.6 fl (35.1-43.9); Red Blood Count 5.02 M/mm3 (4.6-6.2); White Blood Count 6.7 K/mm3 (4.4-11.0)
[2019-04-09 15:46] LABS: CREATININE FINGERSTICK 0.8 mg/dL (0.70-1.30)
[2019-04-09 15:50] LABS: ALB/GLOB Ratio 0.8 RATIO (0.9-2.4); AST(SGOT) 21 U/L (15-37); Alanine Aminotransfer ALT/SGPT 32 U/L (16-61); Albumin, Serum 3.4 g/dL (3.2-5.0); Alkaline Phosphatase 73 U/L (45-117); Anion Gap 4 (5-15); BUN 7 mg/dL (7-18); BUN/Creat Ratio 8.6 RATIO (10-20); Calcium,Total 8.7 mg/dL (8.5-10.1); Chloride 102 mmol/L (98-107); Creatinine, Serum 0.81 mg/dL (0.70-1.30); EST Glomerular Filtration Rate 102 mL/min (>60); Est Glom Filt Rate - Afr Amer 123 mL/min (>60); Globulin 4.5 g/dL (2.2-4.2); Glucose 93 mg/dL (74-106); Potassium 4.5 mmol/L (3.5-5.1); Protein, Total 7.9 g/dL (6.4-8.2); Sodium Level 136 mmol/L (136-145)
[2019-04-13 13:46] LABS: Carcinoembryonic Antigen 2.2 ng/mL (0.0-4.7)
== END ==
PROVIDERS: Family Provider Student in an Organized Health Care Education/Training Program; PCP Student in an Organized Health Care Education/Training Program; Referring Provider Internal Medicine Hematology & Oncology; Visit Provider Internal Medicine Hematology & Oncology
DX: Z01.818 Encounter for other preprocedural examination (principal); C18.2 Malignant neoplasm of ascending colon; C77.9 Secondary and unspecified malignant neoplasm of lymph node, unspecified; R91.8 Other nonspecific abnormal finding of lung field
CPT/HCPCS: 36415; 71260; 80053; 82378; 85025; Q9967

== ENCOUNTER → 2019-10-06 14:00 | Outpatient (CLI) | payer MEDICARE, SELFPAY ==
[2019-09-30 14:08] VITALS: BMI 22.7
--- NOTE | 2019-10-06 14:01 | CT_ITS ---
STUDY: CT CHEST WITH CONTRAST REASON FOR EXAM: Male, 64 years old. MONITOR LUNG NODULES, CHECK UP, HX-A-FIB, COLON CA-PARTIAL COLECTOMY-CHEMO, KIDNEY SURG FOR BLOCKAGE RADIATION DOSAGE (If Supplied By Facility): CTDIvol = ( 12.63 ) mGy, DLP = ( 356.40 ) mGycm TECHNIQUE: Transaxial imaging was performed following intravenous administration of IV 100mL Isovue-300. Multiplanar coronal and sagittal images were reformatted. Individualized dose optimization techniques were used for this CT. COMPARISON: Comparison is made with prior study dated April 09, 2019. FINDINGS: Hyperinflation and emphysematous changes. Stable bullous changes in the upper lobes with scarring. There is a stable 2.8 cm x 1.9 cm inhomogeneous soft tissue density in the peripheral posterior aspect of the right upper lobe. Stable 3.4 mm noncalcified nodule in the peripheral aspect of the left lower lobe as seen on #86. There is no demonstrated pleural abnormality. Normal heart and pericardium. Normal mediastinum. Normal hilar regions. Normal enhanced pulmonary arteries. Normal aorta arch and descending thoracic aorta. There are multi-level degenerative changes of the thoracic spine. Stable cystic changes in the superior aspect of the right kidney. Fatty infiltration of the liver. CT/Chest WITH Contrast IMPRESSION: Stable examination. Electronically Signed: Jorge Cueto, at 14:40 EDT , Service support ,
[2019-10-07 08:51] LABS: CREATININE FINGERSTICK 0.8 mg/dL (0.70-1.30); EGFR FINGERSTICK > 60.0000 mL/min (>60)
== END ==
PROVIDERS: PCP Student in an Organized Health Care Education/Training Program; Referring Provider Internal Medicine Hematology & Oncology; Visit Provider Internal Medicine Hematology & Oncology
DX: R91.8 Other nonspecific abnormal finding of lung field (principal); C18.2 Malignant neoplasm of ascending colon; C77.9 Secondary and unspecified malignant neoplasm of lymph node, unspecified
CPT/HCPCS: 71260; Q9967

== ENCOUNTER → 2019-11-05 15:33 | Outpatient (CLI) | payer MEDICARE, SELFPAY ==
[2019-09-30 14:08] VITALS: BMI 22.7
[2019-11-05 16:29] LABS: PSA,Total - Annual Screen 0.99 ng/mL (0.00-4.00)
== END ==
PROVIDERS: Referring Provider Urology; Visit Provider Urology
DX: Z12.5 Encounter for screening for malignant neoplasm of prostate (principal)
CPT/HCPCS: 36415; 84153; G0103

== ENCOUNTER → 2020-04-28 14:56 | Outpatient (CLI) | payer MEDICARE, SELFPAY ==
[2020-04-11 14:06] VITALS: BMI 22.0
--- NOTE | 2020-04-28 14:58 | CT_ITS ---
STUDY: CT CHEST WITH CONTRAST REASON FOR EXAM: Male, 64 years old. F/U LUNG NODULES H/O COLON CA RADIATION DOSAGE (If Supplied By Facility): CTDIvol = ( 11.305 ) mGy, DLP = ( 378.84 ) mGycm TECHNIQUE: Transaxial imaging was performed following intravenous administration of IV 100mL Isovue-370. Multiplanar coronal and sagittal images were reformatted. Individualized dose optimization techniques were used for this CT. COMPARISON: 10/06/2019. FINDINGS: The lungs are hyperinflated with diffuse emphysematous changes, more severe in the lung apices. Unchanged soft tissue density in the posterior aspect of the right upper lobe, image 31, series 4 measuring 2.9 x 1.6 cm. Unchanged small left lower lobe subpleural nodule measuring 3.4 mm. There is no demonstrated pleural abnormality. Normal heart and pericardium. Normal mediastinum. Normal hilar regions. Normal enhanced pulmonary arteries. There is atherosclerotic calcification of the aortic arch with tortuosity and elongation of the aortic arch and descending thoracic aorta. There are no demonstrated pulmonary emboli. No aortic dissection. Diffuse osteopenia along with degenerative disease. Upper abdomen reveals scarring with multiple cystic changes of the right kidney. Fullness of the right renal pelvis. Small cyst within the left upper renal pole measuring 5 mm. Diffuse fatty liver. CT/Chest WITH Contrast IMPRESSION: Diffuse emphysema with stable right upper lobe density. Stable left lower lobe nodule. No new nodule or masses are identified. Electronically Signed: Lucía Rios MD at 4:00 EST , Service support ,
[2020-04-28 15:11] LABS: CREATININE FINGERSTICK 0.6 mg/dL (0.70-1.30); EGFR FINGERSTICK > 60.0000 mL/min (>60)
== END ==
PROVIDERS: PCP Student in an Organized Health Care Education/Training Program; Referring Provider Internal Medicine Hematology & Oncology; Visit Provider Internal Medicine Hematology & Oncology
DX: R91.8 Other nonspecific abnormal finding of lung field (principal); J43.9 Emphysema, unspecified; C18.2 Malignant neoplasm of ascending colon; C77.9 Secondary and unspecified malignant neoplasm of lymph node, unspecified
CPT/HCPCS: 71260; Q9967; A4216

== ENCOUNTER → 2020-11-08 14:49 | Outpatient (CLI) | payer MEDICARE, SELFPAY ==
[2020-10-10 15:50] VITALS: BMI 22.1
[2020-11-08 15:42] LABS: PSA,Total - Annual Screen 1.12 ng/mL (0.00-4.00)
== END ==
PROVIDERS: Visit Provider Urology
DX: Z12.5 Encounter for screening for malignant neoplasm of prostate (principal)
CPT/HCPCS: 36415; 84153; G0103

== ENCOUNTER → 2021-10-10 | Outpatient (CLI) | payer MEDICARE, SELFPAY ==
--- NOTE | 2021-10-10 14:55 | CT_ITS ---
STUDY: LOW DOSE CT LUNG CANCER SCREENING REASON FOR EXAM: Male, 66 years old. Lung cancer screening -- 50 pk yr hx; asymptomatic; current smoker RADIATION DOSAGE (If Supplied By Facility): CTDIvol = ( 1.59 ) mGy, DLP = ( 60.57 ) mGycm TECHNIQUE: No contrast was administered. Low dose technique was utilized (average mAS-38 and kVp 120). 1.25 mm axial source images with a slice interval of 1.25-mm were reconstructed in lung windows. 2.5 mm axial source images with a slice interval of 2.5-mm were reconstructed in lung windows. 5.0 mm axial source images with a slice interval of 5.0-mm were reconstructed in soft tissue windows. COMPARISON: Comparison is made with prior study dated 04/28/2020. NODULES: There now is evidence of a 6.8 mm x 5.2 mm spiculated nodule in the anterior lateral aspect of the left upper lobe seen on axial image #62 and coronal image #71. A neoplastic process should be ruled out. Stable scarring in the left lung apex. There is a stable 1.8 cm x 2.9 cm heterogeneous soft tissue density in the posterior slightly lateral aspect of the right upper lobe. Stable 3.4 mm pleural-based nodule in the left lower. This is seen on axial image #166. Emphysema: Hyperinflation. Diffuse emphysematous changes worse in the upper lobes with bullous formation. Endobronchial lesion: None Aorta: Mild degree of atherosclerotic calcification of the aortic arch. CORONARY ARTERIES: No coronary artery calcification is seen. Heart: Unremarkable Pulmonary artery: Unremarkable Mediastinal nodes: Unremarkable Other chest and abdominal findings: CT/Low Dose CT Lung Screening IMPRESSION: Lung-RADS category 4B - Chest CT with or without contrast, PET/CT and/or tissue sampling can be obtained depending on the probability of malignancy and comorbidities. IMPORTANT NOTES FOR USE: ACR Lung-RADS Version 1.1 Assessment Categories Release Date: 2018 Category: Coded 0-4 bases on nodule(s) with highest degree of suspicion. Negative screen is defined as categories 1 and 2; a positive screen is defined as categories 3 and 4. Category 3 and 4A nodules that are unchanged on interval CT should be coded as category 2, and individuals returned to screening in 12 months. Category 4X: Category 3 or 4 nodules with additional imaging findings that increase the suspicion of lung cancer, such as spiculation, GGN that doubles in size in 1 year, enlarged lymph notes, etc. Category Modifiers: S (significant finding unrelated to lung cancer) Electronically Signed: Jorge Cueto MD at 15:23 EDT ,
== END | disposition home or self-care (01) ==
LOC: CT 14:51
PROVIDERS: PCP Nurse Practitioner Family; Referring Provider Nurse Practitioner Family; Visit Provider Nurse Practitioner Family
DX: Z87.891 Personal history of nicotine dependence (principal); Z12.2 Encounter for screening for malignant neoplasm of respiratory organs
CPT/HCPCS: 71271

== ENCOUNTER 2021-11-10 07:41 | Outpatient (CLI) | payer MEDICARE, MEDICAID, SELFPAY ==
[2021-11-10] VITALS (7 sets, daily range): BP systolic 104–161; BP diastolic 75–100; PULSE 96–120; RESP 13–30; TEMP 36.8; O2SAT 87–98; BMI 20.5
--- NOTE | 2021-11-10 | ASPIGT_PTH ---
PATIENT: TIA JAIMES LOC: CT U#:[id number] AGE/SX: 66/M ROOM: RE11/10/[address]: SYED Solis : 1955 BED: DIS: 11/10/2021 SPEC #: [id number] RECD: 11/10/21 10:21 STATUS: ADRIANNA MALIKA #: [id number] GER: 11/10/21 00:[address]: Margy Rider NP DEPT: SURGICAL PATHOLOGY RECD BY: Giovanny Jimenez ENTERED: 11/10/21 10:22 SP TYPE: ASP RAD OTHR DR: SYED Guy Tissues: Lung, NOS Procedures: FNA Specimen Adequacy Special Stain Group II Surgery Specimen Level IV Imprint (control) HEADER OPERATION: Left lung biopsy PRE-OP DIAGNOSIS: Left lung mass TISSUE SUBMITTED: Left lung mass MICROSCOPIC DIAGNOSIS Left lung mass, CT-guided core biopsy: A few minute fragments of benign lung parenchymal tissue. Negative for malignancy. See comment. ELIECER:lyndsey 11/13/2021 COMMENT The specimen is evaluated at the time of biopsy by Dr. Arciniega. Immediate Evaluation = Negative for malignant cells. Correlation with clinical, radiologic findings and appropriate follow up are necessary. MICROSCOPIC DESCRIPTION Slides are reviewed. GROSS DESCRIPTION Received in fixative is one container labeled with the patient's name and designated left lung. The specimen consists of multiple irregular fragments of lewis soft tissue that in aggregate measure 1 x <0.1 x <0.1 cm. Four touch imprints are prepared at the time of core biopsy. The specimen is totally submitted in one cassette. / ELIECER:lyndsey 11/10/2021 TC:5 CPT: 81814, 71538
--- NOTE | 2021-11-10 07:52 | CT_ITS ---
PROCEDURE: CT GUIDED CORE NEEDLE BIOPSY OF A spiculated nodule in the left upper lobe. INDICATION: Male, 66 years old. FIDELINA hypermetabolic pulmonary nodule PHYSICIAN: Dr. MICHAEL Cox CONSENT: Written informed consent was obtained having explained the risks, benefits and alternatives in detail with the patient who accepted the risks and agreed to proceed. Laboratory review and clinical assessment was performed. CONSCIOUS SEDATION PROTOCOL: The Drugs used were: 2 mg Versed, IV., and 50 mcg Fentanyl, IV. The sedation time was: 27 minutes. The conscious sedation protocol was independently monitored. RADIATION DOSAGE (If Supplied By Facility): CTDIvol = ( 18.99 ) mGy, DLP = ( 20 4. ) mGycm Individualized dose optimization techniques were used for this CT. TECHNIQUE: The patient was placed in the supine position. A noncontrast CT was performed to localize the lesion in the left upper lobe . The skin surface was prepped and draped in a sterile fashion. 1% lidocaine was used for local anesthesia. Using CT guidance, a 20-gauge coaxial biopsy device was advanced to the periphery of the lesion. A total of 5 core specimens were obtained. The specimens were placed in a formalin solution. A post procedure CT demonstrated no adverse sequelae or pneumothorax. The patient tolerated the procedure well without adverse event. A negative biopsy does not exclude malignancy. Further imaging or clinical followup based on patient condition and degree of clinical suspicion for malignancy. Suggest rebiopsy, if biopsy results do not match with clinical scenario. CT/Biopsy/Inj or Needle Placement IMPRESSION: 1. CT directed core needle biopsy of the spiculated nodule in the left upper lobe using CT image guidance with image documentation as described. Pathology results are pending. 2. Conscious Sedation protocol utilized with independent monitoring. Electronically Signed: Jorge Cueto MD at 10:05 EDT ,
[2021-11-10 07:53] LABS: Absolute Lymphocyte Count 1.38 X10^3/uL (0.83-4.51); Absolute Neutrophil Count 7.8 X10^3/uL (2.0-7.7); Basophil# 0.06 X10^3/uL; Basophil% 0.6 % (0-1); Eosinophil# 0.07 X10^3/uL; Eosinophils% 0.7 % (0-5); Hematocrit 46.7 % (40-54); Hemoglobin 15.6 g/dL (13.0-16.5); Lymphocyte # 1.38 X10^3/ul (0.83-4.51); Lymphocyte % 13.7 % (19-41); Mean Corp Hgb Conc 33.4 g/dL (32-36); Mean Corpuscular Hgb 31.6 pg (27.0-32.0); Mean Corpuscular Volume 94.5 fL (80-94); Monocyte# 0.72 X10^3/uL; Monocyte% 7.2 % (0-10); NRBC Flagged by Analyzer 0 % (0-5); Neutrophil # 7.79 X10^3/uL (2.7-7.7); Neutrophil % 77.4 % (47-70); Platelet Count 191 K/mm3 (150-450); RBC Distribution Width CV 13.5 % (11.6-14.6); RBC Distribution Width SD 46.9 fl (35.1-43.9); Red Blood Count 4.94 M/mm3 (4.6-6.2); White Blood Count 10.1 K/mm3 (4.4-11.0)
[2021-11-10 08:04] LABS: Prothrombin Time (Protime)PT. 13.2 SECONDS (11.7-14.9)
[2021-11-10 08:05] LABS: Partial Thromboplast Time 28.1 Seconds (24.1-36.2)
--- NOTE | 2021-11-10 09:00 | RAD_ITS ---
STUDY: X-RAY CHEST REASON FOR EXAM: Male, 66 years old. Pneumothorax -- Immediately post lung biopsy TECHNIQUE: AP inspiration and expiration views COMPARISON: None. FINDINGS: There is evidence of a 10% left-sided pneumothorax following the percutaneous left lung biopsy. Hyperinflation. RAD/Chest Insp/Exp 2 View IMPRESSION: Left-sided 10% pneumothorax on the immediate post left lung biopsy radiographs. Electronically Signed: Jorge Cueto MD at 10:06 EDT ,
[2021-11-10] MEDS: Midazolam 2 MG/2 ML Syringe IV ×2 (09:12→09:32)
[2021-11-10] MEDS: fentaNYL 100 MCG/2 ML Ampul IV ×2 (09:14→09:34)
[2021-11-10] MEDS: Lidocaine 2% (20 ml mdv) 20 ML Vial INFILT (09:25)
--- NOTE | 2021-11-10 10:23 | NURSING ---
Pt during pt's post-lung biopsy chest xray pt became increasingly short of breath. Dr. Cueto evaluated pt's chest xray which showed a small pneumothorax. Pt continued to become more short of breath and hypoxic. Dr. Cueto was made aware, came to see the patient and immediately was sent over to ED. Verbal report given to FARHAN Domingo RN. Bedside report given to DOUGLAS Lopez and Dr. Rodriguez by DOUGLAS Herrera.
== END 2021-11-10 23:59 | disposition home or self-care (01) ==
PROVIDERS: PCP Nurse Practitioner Family; Referring Provider Nurse Practitioner Family; Visit Provider Nurse Practitioner Family
DX: R91.8 Other nonspecific abnormal finding of lung field (principal); J44.9 Chronic obstructive pulmonary disease, unspecified; I42.8 Other cardiomyopathies; I48.0 Paroxysmal atrial fibrillation; K21.9 Gastro-esophageal reflux disease without esophagitis; N40.0 Benign prostatic hyperplasia without lower urinary tract symptoms; F17.210 Nicotine dependence, cigarettes, uncomplicated; Z90.49 Acquired absence of other specified parts of digestive tract; Z79.899 Other long term (current) drug therapy
CPT/HCPCS: 32408; 36415; 71046; 77012; 85025; 85610; 85730; 88172; 88305; 88313; 99156; J7050; A4216; C2613

== ENCOUNTER 2021-11-10 10:05 | Observation (INO) | payer MEDICARE, MEDICAID, SELFPAY ==
[2021-11-10] VITALS (12 sets, daily range): BP systolic 82–141; BP diastolic 73–119; PULSE 78–140; RESP 16–28; TEMP 36.3–36.6; O2SAT 94–100; BMI 20.5; BMI 19.9
--- NOTE | 2021-11-10 10:18 | RAD_ITS ---
STUDY: X-RAY CHEST REASON FOR EXAM: Male, 66 years old. SOB TECHNIQUE: Single AP portable view of the chest. COMPARISON: Comparison is made with prior examination done earlier today. FINDINGS: A small caliber chest tube has been placed in the upper lateral aspect of the left hemithorax. Tiny residual left apical pneumothorax. RAD/Chest 1 View (Portable) IMPRESSION: Tiny residual left apical pneumothorax. Electronically Signed: Jorge Cueto MD at 11:26 EDT ,
[2021-11-10] MEDS: Ipratropium/Albuterol Sulfate 3 ML AMPUL.NEB INHALATION ×2 (10:23→19:26)
--- NOTE | 2021-11-10 10:23 | ED.VIS.DYS ---
HPI History of Present Illness Chief Complaint: Shortness of Breath Informant: patient Narrative Narrative: Is a 66-year-old male with history of tobacco use, atrial fibrillation, COPD does not wear any supplemental oxygen presenting from interventional radiology after a lung biopsy of the left upper lung. Patient was found to have a 10% pneumothorax. He had hypoxia and was sent to the emergency room for further treatment and evaluation. He does not wear supplemental oxygen. Was feeling well prior to the procedure. Patient denies any associated pain. He states he feels short of breath. Patient is chronically anticoagulated on Eliquis. Denies any other complaints at this time. [facility] Medical History Abnormal colonoscopy Afib BPH (benign prostatic hyperplasia) COPD (chronic obstructive pulmonary disease) COPD (chronic obstructive pulmonary disease) Encounter for screening for malignant neoplasm of lung in current smoker with 30 pack year history or greater GERD (gastroesophageal reflux disease) H/O ventricular tachycardia Iron (Fe) deficiency anemia Left upper lobe pulmonary nodule Multiple lung nodules on CT Non-ischemic cardiomyopathy PAD (peripheral artery disease) Paroxysmal a-fib Personal history of colon cancer Personal history of colonic polyps Personal history of other malignant neoplasm of large intestine Port catheter in place RIGHT KIDNEY PROCEDURE W/ TUBE PLACEMET Tobacco use disorder, continuous Home Medications albuterol sulfate 90 mcg/actuation aerosol inhaler 1 - 2 puff inhalation Q4H PRN PRN Sob &/Or Wheezing 11/25/15 [History Last Taken 11/10/21] apixaban 5 mg tablet 5 mg PO BID 11/25/15 [History Last Taken 10/31/21] atorvastatin 40 mg tablet 40 mg PO QHS 11/25/15 [History Last Taken 11/09/21] pantoprazole 40 mg tablet,delayed release 40 mg PO DAILY 11/25/15 [History Last Taken 11/09/21] tamsulosin 0.4 mg capsule 0.4 mg PO DAILY #7 caps 06/23/18 [Rx Last Taken Unknown] fluticasone fur. 100 mcg-umeclid 62.5 mcg-vilant 25 mcg inhalat.powder 1 ea IH DAILY 04/13/19 [History Last Taken 11/10/21] metoprolol tartrate 25 mg tablet 25 mg PO BID 10/09/21 [History Last Taken 11/09/21] Allergy/AdvReac Type Severity Reaction Status Date / Time No Known Allergies Allergy Verified 11/10/21 10:11 Family History Father Stomach cancer Mother Ovarian cancer Sister Colon cancer Surgical History H/O colectomy History of cataract extraction History of partial colectomy Social History Smoking Status: Current every day smoker tobacco type: cigarettes Tobacco: How many years used: 50 how long ago did patient quit smoking: patient used to smoke [id number], now only smokes 5-10 cigarettes/day details: BEER DAILY substance use type: does not use seatbelt use: sometimes ROS ROS ED Constitutional Constitutional ED: Denies chills or fever(s) Eyes Eyes: Denies blurry vision ENT ENT ED: Denies rhinorrhea or sore throat Cardiovascular Cardiovascular: Denies chest pain or palpitations Respiratory/Chest Respiratory/Chest: Reports cough and dyspnea Gastrointestinal Gastrointestinal: Denies abdominal pain or vomiting Musculoskeletal Musculoskeletal: Denies arthralgias or back pain Integumentary Denies rash Neurologic Neurologic: Denies headache(s) or weakness Psychiatric Psychiatric: Denies anxiety or depression EXAM Physical Exam Const Vital Signs: 11/10/21 10:06 11/10/21 10:12 11/10/21 10:25 Temperature 97.3 F L Temperature Source Temporal Pulse Rate 132 H 140 H Respiratory Rate 25 H 28 H Respiratory Effort Labored Accessory Muscle Use Respiratory Depth Deep Respiratory Pattern Tachypnea Tachypnea Blood Pressure 141/119 H Blood Pressure Mean 126 Pulse Ox 95 Oxygen Delivery Method Non-Rebreather Non-Rebreather Oxygen Flow Rate (L/min) 11/10/21 10:51 11/10/21 11:02 11/10/21 12:25 Temperature 97.3 F L Temperature Source Temporal Pulse Rate 131 H 126 H 92 Respiratory Rate 23 H 18 Respiratory Effort Respiratory Depth Respiratory Pattern Blood Pressure 82/73 L 128/86 H 111/81 H Blood Pressure Mean 76 100 91 Pulse Ox 96 98 98 Oxygen Delivery Method Non-Rebreather Non-Rebreather Nasal Cannula Oxygen Flow Rate (L/min) 2 Positive well nourished Constitutional Narrative: Mild respiratory distress HEENT Reports moist mucous membranes atraumatic Eyes PERRL and EOMs intact bilaterally Neck supple and no JVD Neck Narrative: Trachea is midline Chest Wall Chest Narrative: Patient has bandage on his superior anterior left chest wall from recent biopsy site Resp Resp Narrative: Increased respiratory effort. Diminished breath sounds bilaterally. Patient slightly splinting to the left. Tripoding intermittently. Cardio regular rhythm and no murmurs Rate: tachycardic GI non-tender and non-distended Extremity normal to inspection General Extremety ED: Negative for edema General Extremity: Negative for edema Neuro oriented x3 Motor Exam: Negative for general weakness Psych mental status grossly normal Skin no wounds and skin turgor normal MDM MDM MDM Narrative Medical decision making narrative: Patient is a 66-year-old male presenting for acute respiratory distress after nosocomial pneumothorax. Patient had a scheduled left upper lobe lung biopsy which was complicated by pneumothorax. Patient had increased oxygen requirements and was transferred to the emergency room for further evaluation. While in the ER patient is uncomfortable, anxious and tachycardic. He is placed on a nonrebreather to attempt nitrogen washout and CVA spontaneous resolution of his pneumothorax. Patient becomes more uncomfortable and actually is more tachycardic. He does not display complete tension pneumothorax physiology however given that he is clinically worsening I do think he requires a chest tube before he converts to a tension pneumothorax. Patient is emergently consented. See procedure note. After pigtail catheter placed patient has significant improvement. Given his multiple comorbidities and continued airleak I do think patient would benefit from observation overnight. He is agreeable with this. He is admitted to the hospital service. Procedure note Chest tube- emergent verbal consent Patient placed on continuous pulse oximetry and a nonrebreather. He is given 2 mg IV Versed just prior to procedure. Area anesthetized with 1% lidocaine without epinephrine. Small wyatt made with scalpel and the skin at midclavicular line at approximately fourth intercostal space. 8 Mauritian pigtail quick catheter placed while aspirating until bubbles obtained. There is a large woosh of air 1 syringe removed. Catheter inserted while introduction needle removed. Area sutured to the chest wall. Is hooked up to a flutter valve and then suction. Patient tolerated procedure well with no immediate complication. Radiography Chest X-Ray - ED: 1 View, Read by ED Physician, Read by Radiologist and - (Resolving left pneumothorax, catheter in place) Diagnostic Testing: Clinical Impression(s) from Imaging Studies Chest X-Ray 11/10/21 10:18 IMPRESSION: Tiny residual left apical pneumothorax. Electronically Signed: Jorge Cueto MD at 11:26 EDT Reading Location ID and State: [facility] / [place] , Service support , Discharge Plan Dx/Rx/DC Orders Clinical Impression: Postprocedural pneumothorax, Tachycardia Disposition Disposition: Acute Care Hospital [facility] Discharge Date/Time: 11/10/21 13:38
--- NOTE | 2021-11-10 10:28 | CPS ---
had to terminate treatment, pt could not handle
[2021-11-10] MEDS: Midazolam 2 MG/2 ML Syringe IV (10:33)
--- NOTE | 2021-11-10 10:41 | ED.RN ---
CHEST TUBE BEING PLACED. VS 126/99 O2 93 NONREBREATHER, HR 145, RR 27
--- NOTE | 2021-11-10 12:56 | HP.PCM_ITS ---
Documented by User: SYED Ojeda 11/10/21 13:12 HPI - General General Date of Admission: 11/10/21 Date of Service: 11/10/21 Chief Complaint: Post procedural Hypoxia HPI Narrative TIA JAIMES, is a 66 M who presents following a biopsy. Patient experienced postprocedural hypoxia and was found on x-ray to have a 10% pneumothorax. Patient was taken from radiology to ER for evaluation and a chest tube was placed by Dr. Rodriguez. [facility] Medical History Abnormal colonoscopy Afib BPH (benign prostatic hyperplasia) COPD (chronic obstructive pulmonary disease) COPD (chronic obstructive pulmonary disease) Encounter for screening for malignant neoplasm of lung in current smoker with 30 pack year history or greater GERD (gastroesophageal reflux disease) H/O ventricular tachycardia Iron (Fe) deficiency anemia Left upper lobe pulmonary nodule Multiple lung nodules on CT Non-ischemic cardiomyopathy PAD (peripheral artery disease) Paroxysmal a-fib Personal history of colon cancer Personal history of colonic polyps Personal history of other malignant neoplasm of large intestine Port catheter in place RIGHT KIDNEY PROCEDURE W/ TUBE PLACEMET Tobacco use disorder, continuous Home Medications albuterol sulfate 90 mcg/actuation aerosol inhaler 1 - 2 puff inhalation Q4H PRN PRN Sob &/Or Wheezing 11/25/15 [History Last Taken 11/10/21] apixaban 5 mg tablet 5 mg PO BID 11/25/15 [History Last Taken 10/31/21] atorvastatin 40 mg tablet 40 mg PO QHS 11/25/15 [History Last Taken 11/09/21] pantoprazole 40 mg tablet,delayed release 40 mg PO DAILY 11/25/15 [History Last Taken 11/09/21] tamsulosin 0.4 mg capsule 0.4 mg PO DAILY #7 caps 06/23/18 [Rx Last Taken Unknown] fluticasone fur. 100 mcg-umeclid 62.5 mcg-vilant 25 mcg inhalat.powder 1 ea IH DAILY 04/13/19 [History Last Taken 11/10/21] metoprolol tartrate 25 mg tablet 25 mg PO BID 10/09/21 [History Last Taken 11/09/21] Allergy/AdvReac Type Severity Reaction Status Date / Time No Known Allergies Allergy Verified 11/10/21 10:11 Family History Father Stomach cancer Mother Ovarian cancer Sister Colon cancer Surgical History H/O colectomy History of cataract extraction History of partial colectomy Social History Smoking Status: Current every day smoker tobacco type: cigarettes Tobacco: How many years used: 50 how long ago did patient quit smoking: patient used to smoke [id number], now only smokes 5-10 cigarettes/day details: BEER DAILY substance use type: does not use seatbelt use: sometimes ROS Review of Systems ROS Unobtainable: other Details: Patient received Versed for chest tube placement and is currently sleeping Vital Signs Vital Signs Vital Signs: 11/10/21 10:06 11/10/21 10:12 11/10/21 10:25 Temperature 97.3 F L Temperature Source Temporal Pulse Rate 132 H 140 H Respiratory Rate 25 H 28 H Respiratory Effort Labored Accessory Muscle Use Respiratory Depth Deep Respiratory Pattern Tachypnea Tachypnea Blood Pressure 141/119 H Blood Pressure Mean 126 Pulse Ox 95 Oxygen Delivery Method Non-Rebreather Non-Rebreather Oxygen Flow Rate (L/min) 11/10/21 10:51 11/10/21 11:02 11/10/21 12:25 Temperature 97.3 F L Temperature Source Temporal Pulse Rate 131 H 126 H 92 Respiratory Rate 23 H 18 Respiratory Effort Respiratory Depth Respiratory Pattern Blood Pressure 82/73 L 128/86 H 111/81 H Blood Pressure Mean 76 100 91 Pulse Ox 96 98 98 Oxygen Delivery Method Non-Rebreather Non-Rebreather Nasal Cannula Oxygen Flow Rate (L/min) 2 Weight Weight: 134 lb 14.766 oz Body Mass Index (BMI) 20.5 Physical Exam Const Constitutional Narrative: Currently asleep, received Versed for chest tube placement HEENT normocephalic and head/scalp atraumatic Eyes conjunctivae normal and no scleral icterus Neck supple General: trachea midline Resp normal respiratory effort and normal air movement Resp Narrative: Chest tube intact to left chest Auscultation: diminished lung sounds Cardio regular rate, regular rhythm, S1 normal heart sound, S2 normal heart sound and peripheral pulses 2+ throughout GI normal to inspection, nondistended, normoactive bowel sounds and soft to palpation Extremity normal capillary refill, no clubbing, cyanosis or edema and no calf tenderness Skin General Skin Exam: no breakdown Lesions: no lesions Rashes: no rashes Neuro Neuro Narrative: Unable to assess at this time due to sedation Psych Psych Narrative: Unable to evaluate due to sedation Results Radiology Impression Chest X-Ray 11/10/21 10:18 IMPRESSION: Tiny residual left apical pneumothorax. Electronically Signed: Jorge Cueto MD at 11:26 EDT , Assessment & Plan Assessment/Plan (1) Multiple lung nodules on CT: (2) Postprocedural pneumothorax: PLAN: Plan 1. Postprocedural pneumothorax secondary to lung biopsy -Admit to [facility] -Maintain chest tube -Consult general surgery -Oxygen therapy per protocol, currently on 2 L nasal cannula -We will hold apixaban at this time 2. Malignant neoplasm of large intestine and lung -Currently undergoing work-up for lung nodules -Colon cancer currently on every 6 month surveillance with H&P and CEA 3. COPD -Continue chronic fluticasone inhaler as well as as needed albuterol -Currently stable prior to procedure 4. BPH -Continue Flomax 5. Atrial fibrillation -Eliquis on hold postprocedural -Continue metoprolol DVT prophylaxis-SCDs, chronically anticoagulated with Eliquis however this was on hold for procedure This patient was seen by ROMELIA OjedaC under the supervision of Dr. Lugo. 27 minutes spent in clinical coordination of patient's plan of care. Documented by User: Dr. Adiel Lugo MD 11/10/21 16:32 HPI - General General Date of Admission: 11/10/21 [facility] Medical History Abnormal colonoscopy Afib BPH (benign prostatic hyperplasia) COPD (chronic obstructive pulmonary disease) COPD (chronic obstructive pulmonary disease) Encounter for screening for malignant neoplasm of lung in current smoker with 30 pack year history or greater GERD (gastroesophageal reflux disease) H/O ventricular tachycardia Iron (Fe) deficiency anemia Left upper lobe pulmonary nodule Multiple lung nodules on CT Non-ischemic cardiomyopathy PAD (peripheral artery disease) Paroxysmal a-fib Personal history of colon cancer Personal history of colonic polyps Personal history of other malignant neoplasm of large intestine Port catheter in place RIGHT KIDNEY PROCEDURE W/ TUBE PLACEMET Tobacco use disorder, continuous Home Medications albuterol sulfate 90 mcg/actuation aerosol inhaler 1 - 2 puff inhalation Q4H PRN PRN Sob &/Or Wheezing 11/25/15 [History Last Taken 11/10/21] apixaban 5 mg tablet 5 mg PO BID 11/25/15 [History Last Taken 10/31/21] atorvastatin 40 mg tablet 40 mg PO QHS 11/25/15 [History Last Taken 11/09/21] pantoprazole 40 mg tablet,delayed release 40 mg PO DAILY 11/25/15 [History Last Taken 11/09/21] tamsulosin 0.4 mg capsule 0.4 mg PO DAILY #7 caps 06/23/18 [Rx Last Taken Unknown] fluticasone fur. 100 mcg-umeclid 62.5 mcg-vilant 25 mcg inhalat.powder 1 ea IH DAILY 04/13/19 [History Last Taken 11/10/21] metoprolol tartrate 25 mg tablet 25 mg PO BID 10/09/21 [History Last Taken 11/09/21] Allergy/AdvReac Type Severity Reaction Status Date / Time No Known Allergies Allergy Verified 11/10/21 10:11 Family History Father Stomach cancer Mother Ovarian cancer Sister Colon cancer Surgical History H/O colectomy History of cataract extraction History of partial colectomy Social History Smoking Status: Current every day smoker tobacco type: cigarettes Tobacco: How many years used: 50 how long ago did patient quit smoking: patient used to smoke [id number], now only smokes 5-10 cigarettes/day details: BEER DAILY substance use type: does not use seatbelt use: sometimes Assessment & Plan Assessment/Plan (1) Multiple lung nodules on CT: (2) Postprocedural pneumothorax: Charges/Coding Addendum Addendum: Addendum: Dr. Lugo I personally examined the patient and reviewed the chart. I agree with the above. 66-year-old male presented to the hospital for a biopsy of his left lung secondary to a concern for lung cancer. Post procedurally he had some shortness of breath with hypoxia and was found to have a 10% pneumothorax on the left so he was transferred to the ER where a pigtail catheter was placed. He is doing well otherwise, still in acknowledges that he is a smoker, and initially he was having concerns and reservations about being admitted but ultimately decided to be admitted. We will consult general surgery for evaluation and assistance in managing his chest tube. He does have a history of A. fib, we will hold hold his Eliquis and can restart it potentially in the morning depending on whether or not we can proceed with removing his chest not. There does appear to be a fairly big air leak and so per general surgery, if this does not improve by morning we may need to transfer out of the hospital at which point would not continue Eliquis as there may be further intervention necessary. Clinical time spent in all aspects of patient care: 35 minutes Visit Charges OBSV E&M: 00243 Initial observation care L2
[2021-11-10] MEDS: Acetaminophen 325 MG Tablet 650 MG PO (14:25)
[2021-11-10] MEDS: Budesonide Respules 0.5 MG/2 ML AMPUL.NEB. INHALATION (19:26)
[2021-11-10] MEDS: Atorvastatin Calcium 40 MG Tablet PO (20:56)
[2021-11-10] MEDS: Metoprolol Tartrate 25 MG Tablet PO (20:56)
[2021-11-11] VITALS (7 sets, daily range): BP systolic 106–141; BP diastolic 68–74; PULSE 78–111; RESP 18–20; TEMP 36.5–37.2; O2SAT 95–100
[2021-11-11] MEDS: oxyCODONE 5 MG Tablet PO ×3 (03:08→13:59)
--- NOTE | 2021-11-11 05:20 | RAD_ITS ---
STUDY: X-RAY CHEST REASON FOR EXAM: Male, 66 years old. pneumothorax TECHNIQUE: AP COMPARISON: Yesterday FINDINGS: Left lateral apical chest tube is similar position. Small volume left apical pneumothorax stable. Atelectasis and nodule of the left upper lobe stable. Parenchymal fibrotic scarring noted. Normal size heart. Normal mediastinum and rodrigo. Normal visualized pulmonary arteries. Normal visualized aortic arch and descending thoracic aorta. No acute bony process. Old left rib fractures. There is no demonstrated abnormality of the visualized soft tissue structures of the upper abdomen. RAD/Chest 1 View (Portable) IMPRESSION: 1. Stable left apical pneumothorax with left chest tube. Electronically Signed: Davey Natarajan MD ([place]) at 19:01 EDT ,
--- NOTE | 2021-11-11 06:54 | EX.PCM.CON.S ---
Assessment & Plan Assessment/Plan (1) Postprocedural pneumothorax: PLAN: The patient had chest tube placed after lung biopsy for left lung mass. The patient had airleak yesterday and continues to have continuous air leak today. Patient's chest x-ray shows small persistent pneumothorax. I believe the patient has a large air leak and requires transfer to a center with thoracic surgery. This would benefit him as well as he does have a lung mass that did indicate positive neoplasm on PET scan. Patient has history of stage III colon cancer so this may be a metastatic lesion or a new primary. Marco Lizarraga MD Pager: [facility] [address] [place] [address], [address] [place] [address] Office: HPI Consult Data Date of Consult: 11/11/21 HPI Narrative HPI Narrative: TIA JAIMES, is a 66 M who was admitted after a left lung biopsy. The patient had pneumothorax following left lung biopsy and was sent to the emergency room and a chest tube was placed and the patient was admitted to the floor. Patient does not complain of shortness of breath or chest pain on that side. [facility] Medical History Abnormal colonoscopy Afib BPH (benign prostatic hyperplasia) COPD (chronic obstructive pulmonary disease) COPD (chronic obstructive pulmonary disease) Encounter for screening for malignant neoplasm of lung in current smoker with 30 pack year history or greater GERD (gastroesophageal reflux disease) H/O ventricular tachycardia Iron (Fe) deficiency anemia Left upper lobe pulmonary nodule Multiple lung nodules on CT Non-ischemic cardiomyopathy PAD (peripheral artery disease) Paroxysmal a-fib Personal history of colon cancer Personal history of colonic polyps Personal history of other malignant neoplasm of large intestine Port catheter in place RIGHT KIDNEY PROCEDURE W/ TUBE PLACEMET Tobacco use disorder, continuous Home Medications albuterol sulfate 90 mcg/actuation aerosol inhaler 1 - 2 puff inhalation Q4H PRN PRN Sob &/Or Wheezing 11/25/15 [History Last Taken 11/10/21] apixaban 5 mg tablet 5 mg PO BID 11/25/15 [History Last Taken 10/31/21] atorvastatin 40 mg tablet 40 mg PO QHS 11/25/15 [History Last Taken 11/09/21] pantoprazole 40 mg tablet,delayed release 40 mg PO DAILY 11/25/15 [History Last Taken 11/09/21] tamsulosin 0.4 mg capsule 0.4 mg PO DAILY #7 caps 06/23/18 [Rx Last Taken Unknown] fluticasone fur. 100 mcg-umeclid 62.5 mcg-vilant 25 mcg inhalat.powder 1 ea IH DAILY 04/13/19 [History Last Taken 11/10/21] metoprolol tartrate 25 mg tablet 25 mg PO BID 10/09/21 [History Last Taken 11/09/21] Allergy/AdvReac Type Severity Reaction Status Date / Time No Known Allergies Allergy Verified 11/10/21 10:11 Family History Father Stomach cancer Mother Ovarian cancer Sister Colon cancer Surgical History H/O colectomy History of cataract extraction History of partial colectomy Social History Smoking Status: Current every day smoker tobacco type: cigarettes Tobacco: How many years used: 50 how long ago did patient quit smoking: patient used to smoke [id number], now only smokes 5-10 cigarettes/day details: BEER DAILY substance use type: does not use seatbelt use: sometimes ROS Constitutional Constitutional: Denies anorexia or fatigue Eyes Eyes: Denies blurry vision ENT HEENT: Denies abnormal hearing Cardiovascular Cardiovascular: Reports chest pain; Denies dyspnea, palpitations or syncope Respiratory/Chest Respiratory/Chest: Reports cough; Denies dyspnea, productive cough or wheezing Gastrointestinal Gastrointestinal: Denies abdominal pain or bloating Genitourinary Genitourinary: Denies difficulty urinating Musculoskeletal Musculoskeletal: Denies back pain Integumentary Integumentary: Denies new lesions Physical Exam Const alert and oriented x3 HEENT normocephalic Chest Chest Narrative: Chest tube on the left side with continuous air leak Resp normal respiratory effort and normal air movement Cardio regular rate and regular rhythm GI soft to palpation, non-tender and non-distended Extremity normal to inspection Radiology Impression Chest X-Ray 11/10/21 10:18 IMPRESSION: Tiny residual left apical pneumothorax. Electronically Signed: Jorge Cueto MD at 11:26 EDT ,
[2021-11-11] MEDS: Tamsulosin HCl 0.4 MG Capsule PO (07:47)
--- NOTE | 2021-11-11 09:19 | CASEMGMT ---
DOUGLAS WIGGINS NOTE: [facility], [facility], and [facility]. Nighat VAUGHN RN CM
[2021-11-11] MEDS: Metoprolol Tartrate 25 MG Tablet PO (10:39)
[2021-11-11] MEDS: Pantoprazole Sodium 40 MG Tablet PO (10:39)
--- NOTE | 2021-11-11 11:05 | PCM.PN.HOSP ---
Documented by User: SYED Ojeda 11/11/21 11:09 Subjective Subjective Patient seen and examined. Patient continues to have shortness of breath however he is not currently in any respiratory distress. Objective Data Objective Data Vital Signs: Vital Signs Temp Pulse Resp BP Pulse Ox 98.6 F 111 H 20 H 141/74 H 98 11/11/21 08:00 11/11/21 10:39 11/11/21 08:00 11/11/21 08:00 11/11/21 08:00 Oxygen Flow Rate (L/min) 2 Oxygen Delivery Method Nasal Cannula Weight: 131 lb 2.801 oz Body Mass Index (BMI) 19.9 Intake & Output: Intake and Output for Last 24 Hours 11/09/21 11/10/21 11/11/21 23:59 23:59 23:59 Intake Total 350 / 350 Output Total 5 / 210 210 / 210 Balance 345 / 140 -210 / -210 Radiography Diagnostic Testing: Radiology Impression Chest X-Ray 11/10/21 10:18 IMPRESSION: Tiny residual left apical pneumothorax. Electronically Signed: Jorge Cueto MD at 11:26 EDT Reading Location ID and State: [facility] / ID , Service support , Physical Exam Const alert, oriented x3 and no apparent distress HEENT normocephalic and head/scalp atraumatic Eyes conjunctivae normal and no scleral icterus Neck supple General: trachea midline Chest Chest Narrative: Chest tube on the left side with continuous air leak Resp normal respiratory effort and normal air movement Resp Narrative: Right side expiratory wheeze Cardio regular rate, regular rhythm, S1 normal heart sound and S2 normal heart sound GI soft to palpation, non-tender and non-distended Extremity normal to inspection Neuro oriented x3, moves all extremities, no focal motor deficits and no sensory deficits noted Psych affect normal Assessment & Plan Assessment/Plan (1) Multiple lung nodules on CT: (2) Postprocedural pneumothorax: PLAN: Plan 1. Postprocedural pneumothorax secondary to lung biopsy -Maintain chest tube -Patient evaluated by Dr. Lizarraga. Dr. Lizarraga concerned about patient's airleak as it continues. [facility] and [facility] called for transfer for further evaluation -Oxygen therapy per protocol, currently on 2 L nasal cannula -We will hold apixaban at this time 2. Malignant neoplasm of large intestine and lung -Currently undergoing work-up for lung nodules -Colon cancer currently on every 6 month surveillance with H&P and CEA 3. COPD -Continue chronic fluticasone inhaler as well as as needed albuterol -Currently stable prior to procedure 4. BPH -Continue Flomax 5. Atrial fibrillation -Eliquis on hold postprocedural -Continue metoprolol DVT prophylaxis-SCDs, chronically anticoagulated with Eliquis however this was on hold for procedure This patient was seen by Idalia Zheng NP-C under the supervision of Dr. Lugo. 13 minutes spent in clinical coordination of patient's plan of care. Documented by User: Dr. Adiel Lugo MD 11/11/21 11:15 Assessment & Plan Assessment/Plan (1) Multiple lung nodules on CT: (2) Postprocedural pneumothorax: Charges/Coding Addendum Addendum: Dr. Lugo I personally examined the patient and reviewed the chart. I agree with the above.? 85[facility] presents with a red swollen knee.? He was started on clindamycin 2 to 3 days ago and has not noted any improvement, he did have a slight fever today so he was brought into the ER.? Left knee x-ray is unremarkable other than an effusion.? On exam he does have a cellulitic left knee with an area of fluctuance.? Orthopedic surgery was consulted for possible bedside drainage versus operative drainage.? After their examination will allow them to decide whether or not they want to proceed with an MRI.? We will expand his antibiotics to Unasyn and vancomycin, he does have a penicillin allergy however the reaction is listed his other so we will just keep an eye on him.? Blood cultures and urine cultures are pending.? Clinical time spent in all aspects of patient care: 45 minutes 11/11/2021: Continues to have a fairly large air leak, he is not in any respiratory distress maintaining his oxygen saturations on 2 L nasal cannula. General surgery felt that the airleak was too large to be managed here as he might need further surgical intervention both for this pneumothorax as well as the biopsied nodule. We will reach out to local tertiary care centers to see if anyone is available to accept him in transfer and manage his pneumothorax. Clinical time spent in all aspects of patient care: 20 minutes Visit Charges OBSV E&M: 27892 Subsequent observation care L2
--- NOTE | 2021-11-11 13:18 | DCINST_ITS ---
Discharge Instructions Diet Discharge Diet: Low fat / Low cholesterol Dressing / Incision Call your doctor if you observe: Shortness of breath Follow Up Care Test Results: Test results from this visit will be discussed in further detail at your follow- up appointment, if applicable. Discharge Plan Admission Admit Date/Time: 11/10/21 12:48 Primary Reason for Your Visit: Post procedural Pneumothorax Attending Provider: Adiel Lugo Primary Care Provider: Yomaira Jones NP Consulting Providers: Marco Lizarraga Discharge Orders/Prescriptions Prescriptions: New acetaminophen [Tylenol] 325 mg Tablet 650 mg PO Q6H PRN PRN (Reason: Pain Score 1-10/Temp > 100.7 F) Qty: 0 0RF sodium chloride 0.9 % (flush) [BD PosiFlush Normal Saline 0.9] Syringe 10 - 40 ml IV UD PRN (Reason: Saline Flush) Qty: 0 0RF ipratropium-albuterol 0.5 mg-3 mg(2.5 mg base)/3 mL Solution For Nebulization 3 ml inhalation Q6HWA.RT Qty: 0 0RF budesonide 0.5 mg/2 mL Suspension For Nebulization 0.5 mg inhalation Q12H.RT Qty: 0 0RF oxycodone 5 mg Tablet 5 mg PO Q4H PRN PRN (Reason: Pain Score 6-10) Qty: 0 0RF ondansetron HCl (PF) 4 mg/2 mL Solution 4 mg IV Q8H PRN PRN (Reason: Nausea/Vomiting) Qty: 0 0RF Continued metoprolol tartrate 25 mg tablet 25 mg PO BID atorvastatin 40 MG tablet 40 mg PO QHS Label Comments: CHOLESTEROL LOWERING pantoprazole 40 MG tablet 40 mg PO DAILY Label Comments: ACID REFLUX [id number] 1 EACH blister with device 1 ea IH DAILY tamsulosin 0.4 MG capsule 0.4 mg PO DAILY Qty: 7 0RF Discontinued apixaban 5 MG tablet 5 mg PO BID Label Comments: BLOOD THINNER/WILL STOP 2 DAYS PRIOR TO PROCEDURE albuterol sulfate 1 PUFF inhaler 1 - 2 puff inhalation Q4H PRN PRN (Reason: Sob &/Or Wheezing) Label Comments: BREATHING Referrals / Follow Up: Yomaira Jones NP, SUPER[employer]-C [Primary Care Provider] - Disposition Disposition (needs filled in before D/C Order can be placed): [facility]
--- NOTE | 2021-11-11 13:26 | DS.PCM_ITS ---
Documented by User: SYED Ojeda 11/11/21 13:38 Providers Date of Admission: 11/10/21 Date of Discharge: 11/11/21 Primary Care Physician: SYED Guy Consultations 11/10/21 13:39 Consult: General Surgery Routine Consulting Provider: Marco Lizarraga Reason for Consult: Post-procedure pneumothorax EMERGENT Consult: No MD Notified: Yes Date Notified: 11/10/21 Time Notified: 13:47 Method of Notification: Text Reason For Visit: POST-PROCEDURE PTX Diagnosis Discharge Diagnosis (1) Multiple lung nodules on CT: Status: Acute Code(s): R91.8 - Other nonspecific abnormal finding of lung field (2) Postprocedural pneumothorax: Status: Acute Code(s): J95.811 - Postprocedural pneumothorax Medications at Discharge Home Medications atorvastatin 40 mg tablet 40 mg PO QHS 11/25/15 pantoprazole 40 mg tablet,delayed release 40 mg PO DAILY 11/25/15 tamsulosin 0.4 mg capsule 0.4 mg PO DAILY #7 caps 06/23/18 fluticasone fur. 100 mcg-umeclid 62.5 mcg-vilant 25 mcg inhalat.powder 1 ea IH DAILY 04/13/19 metoprolol tartrate 25 mg tablet 25 mg PO BID 10/09/21 acetaminophen 325 mg tablet (Tylenol) 650 mg PO Q6H PRN PRN Pain Score 1-10/Temp > 100.7 F #0 tabs 11/11/21 budesonide 0.5 mg/2 mL suspension for nebulization 0.5 mg (2 mL) inhalation Q12H.RT #0 mL 11/11/21 ipratropium 0.5 mg-albuterol 3 mg (2.5 mg base)/3 mL nebulization soln 3 ml inhalation Q6HWA.RT #0 mL 11/11/21 ondansetron HCl (PF) 4 mg/2 mL injection solution 4 mg (2 mL) IV Q8H PRN PRN Nausea/Vomiting #0 mL 11/11/21 oxycodone 5 mg tablet 5 mg PO Q4H PRN PRN Pain Score 6-10 #0 tabs 11/11/21 sodium chloride 0.9 % (flush) (BD PosiFlush Normal Saline 0.9) 10 - 40 ml IV UD PRN Saline Flush #0 mL 11/11/21 Hospital Course Operations None Procedures - (Chest tube) Summary of Care Provided Minutes Spent on Discharge: 35 Hospital Course: Patient is a 66-year-old male who presented with a post procedural pneumothorax following lung biopsy. Patient was sent to the ER for evaluation and chest tube placement. Chest tube was placed by Dr. Rodriguez in the ER and subsequent chest x- ray shows reduction in size of pneumothorax. Patient was evaluated by Dr. Lizarraga of general surgery who was concerned about his air leak which has continued. Patient also continues to be short of breath and hypoxic without oxygen. Due to continued leak from chest tube as recommended by general surgery that patient be transferred to tertiary care center for further evaluation. [facility] and [facility] were called and they accepted patient however they do not currently have any beds available but will call us when 1 becomes available. Physical Exam Const alert, oriented x3 and no apparent distress HEENT normocephalic and head/scalp atraumatic Eyes conjunctivae normal and no scleral icterus Neck supple General: trachea midline Chest Chest Narrative: Chest tube on the left side with continuous air leak Resp normal respiratory effort and normal air movement Resp Narrative: Right side expiratory wheeze Cardio regular rate, regular rhythm, S1 normal heart sound and S2 normal heart sound GI soft to palpation, non-tender and non-distended Extremity normal to inspection Neuro oriented x3, moves all extremities, no focal motor deficits and no sensory deficits noted Psych affect normal Weight / BMI Weight Weight: 131 lb 2.801 oz Body Mass Index (BMI) 19.9 D/C Instructions Discharge Diet: Low fat / Low cholesterol Call your doctor if you observe: Shortness of breath Meaningful Use Info Meaningful Use Diagnoses (Choose all that apply): None applicable Discharge Plan Admission Admit Date/Time: 11/10/21 12:48 Primary Reason for Your Visit: Post procedural Pneumothorax Attending Provider: Adiel Lugo Primary Care Provider: Yomaira Jones NP Consulting Providers: Marco Lizarraga Discharge Orders/Prescriptions Prescriptions: New acetaminophen [Tylenol] 325 mg Tablet 650 mg PO Q6H PRN PRN (Reason: Pain Score 1-10/Temp > 100.7 F) Qty: 0 0RF sodium chloride 0.9 % (flush) [BD PosiFlush Normal Saline 0.9] Syringe 10 - 40 ml IV UD PRN (Reason: Saline Flush) Qty: 0 0RF ipratropium-albuterol 0.5 mg-3 mg(2.5 mg base)/3 mL Solution For Nebulization 3 ml inhalation Q6HWA.RT Qty: 0 0RF budesonide 0.5 mg/2 mL Suspension For Nebulization 0.5 mg inhalation Q12H.RT Qty: 0 0RF oxycodone 5 mg Tablet 5 mg PO Q4H PRN PRN (Reason: Pain Score 6-10) Qty: 0 0RF ondansetron HCl (PF) 4 mg/2 mL Solution 4 mg IV Q8H PRN PRN (Reason: Nausea/Vomiting) Qty: 0 0RF Continued metoprolol tartrate 25 mg tablet 25 mg PO BID atorvastatin 40 MG tablet 40 mg PO QHS Label Comments: CHOLESTEROL LOWERING pantoprazole 40 MG tablet 40 mg PO DAILY Label Comments: ACID REFLUX [id number] 1 EACH blister with device 1 ea IH DAILY tamsulosin 0.4 MG capsule 0.4 mg PO DAILY Qty: 7 0RF Discontinued apixaban 5 MG tablet 5 mg PO BID Label Comments: BLOOD THINNER/WILL STOP 2 DAYS PRIOR TO PROCEDURE albuterol sulfate 1 PUFF inhaler 1 - 2 puff inhalation Q4H PRN PRN (Reason: Sob &/Or Wheezing) Label Comments: BREATHING Referrals / Follow Up: Yomaira Jones METHODS AND PROCEDURES ANALYST, METHODS AND PROCEDURES ANALYST-C [Primary Care Provider] - Disposition Disposition (needs filled in before D/C Order can be placed): [facility] Documented by User: Dr. Adiel Lugo MD 11/11/21 17:56 Providers Date of Admission: 11/10/21 Reason For Visit: POST-PROCEDURE PTX Diagnosis Discharge Diagnosis (1) Multiple lung nodules on CT: Status: Acute Code(s): R91.8 - Other nonspecific abnormal finding of lung field (2) Postprocedural pneumothorax: Status: Acute Code(s): J95.811 - Postprocedural pneumothorax Medications at Discharge Home Medications atorvastatin 40 mg tablet 40 mg PO QHS 11/25/15 pantoprazole 40 mg tablet,delayed release 40 mg PO DAILY 11/25/15 tamsulosin 0.4 mg capsule 0.4 mg PO DAILY #7 caps 06/23/18 fluticasone fur. 100 mcg-umeclid 62.5 mcg-vilant 25 mcg inhalat.powder 1 ea IH DAILY 04/13/19 metoprolol tartrate 25 mg tablet 25 mg PO BID 10/09/21 acetaminophen 325 mg tablet (Tylenol) 650 mg PO Q6H PRN PRN Pain Score 1-10/Temp > 100.7 F #0 tabs 11/11/21 budesonide 0.5 mg/2 mL suspension for nebulization 0.5 mg (2 mL) inhalation Q12H.RT #0 mL 11/11/21 ipratropium 0.5 mg-albuterol 3 mg (2.5 mg base)/3 mL nebulization soln 3 ml inhalation Q6HWA.RT #0 mL 11/11/21 ondansetron HCl (PF) 4 mg/2 mL injection solution 4 mg (2 mL) IV Q8H PRN PRN Nausea/Vomiting #0 mL 11/11/21 oxycodone 5 mg tablet 5 mg PO Q4H PRN PRN Pain Score 6-10 #0 tabs 11/11/21 sodium chloride 0.9 % (flush) (BD PosiFlush Normal Saline 0.9) 10 - 40 ml IV UD PRN Saline Flush #0 mL 11/11/21 Discharge Plan Admission Admit Date/Time: 11/10/21 12:48 Primary Reason for Your Visit: Post procedural Pneumothorax Attending Provider: Adiel Lugo Primary Care Provider: Yomaira Jones NP Consulting Providers: Marco Lizarraga Discharge Orders/Prescriptions Prescriptions: New acetaminophen [Tylenol] 325 mg Tablet 650 mg PO Q6H PRN PRN (Reason: Pain Score 1-10/Temp > 100.7 F) Qty: 0 0RF sodium chloride 0.9 % (flush) [BD PosiFlush Normal Saline 0.9] Syringe 10 - 40 ml IV UD PRN (Reason: Saline Flush) Qty: 0 0RF ipratropium-albuterol 0.5 mg-3 mg(2.5 mg base)/3 mL Solution For Nebulization 3 ml inhalation Q6HWA.RT Qty: 0 0RF budesonide 0.5 mg/2 mL Suspension For Nebulization 0.5 mg inhalation Q12H.RT Qty: 0 0RF oxycodone 5 mg Tablet 5 mg PO Q4H PRN PRN (Reason: Pain Score 6-10) Qty: 0 0RF ondansetron HCl (PF) 4 mg/2 mL Solution 4 mg IV Q8H PRN PRN (Reason: Nausea/Vomiting) Qty: 0 0RF Continued metoprolol tartrate 25 mg tablet 25 mg PO BID atorvastatin 40 MG tablet 40 mg PO QHS Label Comments: CHOLESTEROL LOWERING pantoprazole 40 MG tablet 40 mg PO DAILY Label Comments: ACID REFLUX [id number] 1 EACH blister with device 1 ea IH DAILY tamsulosin 0.4 MG capsule 0.4 mg PO DAILY Qty: 7 0RF Discontinued apixaban 5 MG tablet 5 mg PO BID Label Comments: BLOOD THINNER/WILL STOP 2 DAYS PRIOR TO PROCEDURE albuterol sulfate 1 PUFF inhaler 1 - 2 puff inhalation Q4H PRN PRN (Reason: Sob &/Or Wheezing) Label Comments: BREATHING Referrals / Follow Up: Yomaira Jones METHODS AND PROCEDURES ANALYST, METHODS AND PROCEDURES ANALYST-C [Primary Care Provider] - Disposition Disposition (needs filled in before D/C Order can be placed): [facility] Charges/Coding Addendum Addendum: Dr. Lugo I personally examined the patient and reviewed the chart. I agree with the above.? 85-year-old male from the group home presents with a red swollen knee.? He was started on clindamycin 2 to 3 days ago and has not noted any improvement, he did have a slight fever today so he was brought into the ER.? Left knee x-ray is unremarkable other than an effusion.? On exam he does have a cellulitic left knee with an area of fluctuance.? Orthopedic surgery was consulted for possible bedside drainage versus operative drainage.? After their examination will allow them to decide whether or not they want to proceed with an MRI.? We will expand his antibiotics to Unasyn and vancomycin, he does have a penicillin allergy however the reaction is listed his other so we will just keep an eye on him.? Blood cultures and urine cultures are pending.? Clinical time spent in all aspects of patient care: 45 minutes 11/11/2021:?Continues to have a fairly large air leak, he is not in any respiratory distress maintaining his oxygen saturations on 2 L nasal cannula.? General surgery felt that the airleak was too large to be managed here as he might need further surgical intervention both for this pneumothorax as well as the biopsied nodule.? We discussed the case both with [facility] as well as [facility], [facility] was able to take him today as he had a bed open up this afternoon so plan will be to discharge him to [facility] for more definitive treatment of his pneumothorax.? Clinical time spent in all aspects of patient care: 37 minutes Visit Charges OBSV E&M: 13587 Observation care discharge
[2021-11-11] MEDS: Morphine 2 MG/ML Syringe IV (18:32)
[2021-11-11] MEDS: 0.9% Saline Lock 10 ML Syringe IV (18:33)
== END 2021-11-11 19:10 | disposition short-term general hospital (02) ==
LOC: ED 11:22 → MS3 12:55
PROVIDERS: Admitting Provider Family Medicine; Emergency Provider Emergency Medicine; PCP Nurse Practitioner Family; Visit Provider Family Medicine
DX: J95.811 Postprocedural pneumothorax (principal); J44.9 Chronic obstructive pulmonary disease, unspecified; I42.8 Other cardiomyopathies; I48.0 Paroxysmal atrial fibrillation; R91.8 Other nonspecific abnormal finding of lung field; R09.02 Hypoxemia; F17.210 Nicotine dependence, cigarettes, uncomplicated; N40.0 Benign prostatic hyperplasia without lower urinary tract symptoms; M25.462 Effusion, left knee; Z79.01 Long term (current) use of anticoagulants; Z79.899 Other long term (current) drug therapy; Z90.49 Acquired absence of other specified parts of digestive tract; K21.9 Gastro-esophageal reflux disease without esophagitis
CPT/HCPCS: 32551; 36415; 71045; 71046; 77012; 85025; 85610; 85730; 88172; 88305; 88313; 94640; 94762; 96374; 96375; 99156; 99218; 99251; 99283; 99406; J7030; J7050; A4216; C2613; G0378; G0463